=== PATIENT | female | born 1965 | race African-American/Black ===

== ENCOUNTER 2023-10-11 16:33 | Outpatient (AMB) | payer OTHER, SELFPAY ==
--- NOTE | 2023-10-11 16:50 | HO.NEPHOV ---
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 She has history of breast cancer which was treated. She has not taking any medications for the same. Her blood pressure has been close to goal. She does not have any other systemic symptoms. She has no edema, rise in serum creatinine, uncontrolled blood pressure or froth/foam in the urine. She denies any epistaxis, photosensitivity, skin rashes, urinary symptoms. She has no orthostasis. She does not take any excessive nonsteroidal anti-inflammatories. She claims to be compliant with her medications. She is currently on metformin which is keeping a blood sugar better controlled. Her proteinuria had been well controlled all along but not in the last urine test. [facility] Medical History (Updated 10/12/23 @ 21:30 by Aroldo Mendez MD) Hypertension Surgical History (Updated 10/11/23 @ 16:56 by Rachel Cardoso MA) History of removal of Port-a-Cath H/O mastectomy History of lumpectomy History of breast biopsy Family History Mother Heart disease Father Pancreatic cancer Sister Lymph node cancer Social History Alcohol intake: current Comment: Rare Patient Tobacco Use Status: Never used Tobacco Physical Exam Vital Signs: Last Vital Signs Pulse 93 10/11/23 16:51 BP 120/72 10/11/23 16:51 Pulse Ox 98 10/11/23 16:51 Oxygen Delivery Method Room Air 10/11/23 16:51 BMI result Body Mass Index 29.3 Const General: comfortable and no acute distress Orientation/consciousness: patient oriented x3 HEENT Head: Yes normocephalic Mouth: Normal oral and palatal mucosa present Eyes EOM: EOMs intact bilaterally Neck Neck: Yes supple Resp Auscultation: clear to auscultation bilaterally Cardio Jugular venous distension: no JVD Rate: regular rate GI Palpation (GI): Soft to palpation Auscultation: normal bowel sounds General: Yes no CVA tenderness Back/Spine/Pelvis Back: no CVA tenderness Skin General skin exam: no rashes or lesions noted Neuro General: patient oriented x3 and moves all extremities Extrem General: Yes no pedal edema Results Reviewed Nephrology Results: No Data to Display Assessment & Plan Assessment & Plan (1) Hypertension: Code(s): I10 - Essential (primary) hypertension Category: Medical Qualifiers: Hypertension type: primary hypertension Qualified Code(s): I10 - Essential (primary) hypertension (2) Proteinuria: Code(s): R80.9 - Proteinuria, unspecified Category: Medical Qualifiers: Proteinuria type: other Qualified Code(s): R80.8 - Other proteinuria Plan Breana has longstanding proteinuria which had been well controlled until recently. She has history of breast cancer which was treated with tamoxifen as well as letrozole which she has finished now. Blood pressure is well controlled. She has diabetes and is on metformin. Her renal functions have been stable. She denies any edema, froth or foam in the urine. In the past her serology and immunology were negative. Her anti CANDIE 2 R antibody was negative as well. I ordered repeat lab work. I will consider switching her amlodipine to diltiazem to utilize its anti proteinuric effect. She may need a renal biopsy. I asked her to stay away from nonsteroidal anti-inflammatories and maintain good hydration. I did not make any medication changes today. Further management is pending evolving data Orders: Orders Protein Creatinine Ratio, Ur 3 Months I10 - Essential (primary) hypertension, R80.9 - Proteinuria, unspecified Immunofixation, Random Urine 1 Month I10 - Essential (primary) hypertension, R80.9 - Proteinuria, unspecified Blood Urea Nitrogen 10/11/23 I10 - Essential (primary) hypertension, R80.9 - Proteinuria, unspecified Electrolytes 10/11/23 I10 - Essential (primary) hypertension, R80.9 - Proteinuria, unspecified Protein Creatinine Ratio, Ur 1 Month I10 - Essential (primary) hypertension, R80.9 - Proteinuria, unspecified Immunofixation Pnl, Serum 1 Month I10 - Essential (primary) hypertension, R80.9 - Proteinuria, unspecified Creatinine 10/11/23 I10 - Essential (primary) hypertension, R80.9 - Proteinuria, unspecified Calcium 10/11/23 I10 - Essential (primary) hypertension, R80.9 - Proteinuria, unspecified Coding Level of Care Code Est Pt Level 4 (54033) Diagnoses Primary hypertension I10 Hypertension type: primary hypertension Other proteinuria R80.8 Proteinuria type: other
[2023-10-11 16:51] VITALS: BP 120/72; PULSE 93; O2SAT 98; BMI 29.3
== END 2023-10-11 17:20 | disposition home or self-care (01) ==
PROVIDERS: PCP Hospitalist; Visit Provider Internal Medicine Nephrology
DX: I10 Essential (primary) hypertension (principal); R80.8 Other proteinuria
CPT/HCPCS: 99214

== ENCOUNTER → 2023-10-11 16:33 | Outpatient (BNVA) | payer OTHER, SELFPAY | PROVIDERS: PCP Hospitalist; Visit Provider Internal Medicine Nephrology ==

== ENCOUNTER 2024-01-10 16:15 | Outpatient (AMB) | payer OTHER, SELFPAY ==
--- NOTE | 2024-01-10 16:16 | HO.NEPHOV_ITS ---
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 She has history of breast cancer which was treated. She has not taking any medications for the same. Her blood pressure has been close to goal. She does not have any other systemic symptoms. She has no edema, rise in serum creatinine, uncontrolled blood pressure or froth/foam in the urine. She denies any epistaxis, photosensitivity, skin rashes, urinary symptoms. She has no orthostasis. She does not take any excessive nonsteroidal anti-inflammatories. She claims to be compliant with her medications. She is currently on metformin dose of which has been increased to 1000 mg bid. Her proteinuria had been well controlled all along but not in the last urine test. [facility] Medical History (Updated 10/12/23 @ 21:30 by Aroldo Mendez MD) Hypertension Surgical History History of removal of Port-a-Cath H/O mastectomy History of lumpectomy History of breast biopsy Family History Mother Heart disease Father Pancreatic cancer Sister Lymph node cancer Social History Alcohol intake: current Comment: Rare Patient Tobacco Use Status: Never used Tobacco Review of Systems Const All systems reviewed & are unremarkable except as noted in HPI and below Physical Exam Vital Signs: Last Vital Signs Pulse 85 01/10/24 16:17 BP 118/86 01/10/24 16:17 Pulse Ox 95 01/10/24 16:17 Oxygen Delivery Method Room Air 01/10/24 16:17 BMI result Body Mass Index 28.5 Const General: comfortable and no acute distress Orientation/consciousness: patient oriented x3 HEENT Head: Yes normocephalic Mouth: Normal oral and palatal mucosa present Eyes EOM: EOMs intact bilaterally Neck Neck: Yes supple Resp Auscultation: clear to auscultation bilaterally Cardio Jugular venous distension: no JVD Rate: regular rate GI Palpation (GI): Soft to palpation Auscultation: normal bowel sounds General: Yes no CVA tenderness Back/Spine/Pelvis Back: no CVA tenderness Skin General skin exam: no rashes or lesions noted Neuro General: patient oriented x3 and moves all extremities Extrem General: Yes no pedal edema Results Reviewed Nephrology Results: No Data to Display Assessment & Plan Assessment & Plan (1) Proteinuria: Code(s): R80.9 - Proteinuria, unspecified Category: Medical Qualifiers: Proteinuria type: other Qualified Code(s): R80.8 - Other proteinuria (2) Hypertension: Code(s): I10 - Essential (primary) hypertension Category: Medical Qualifiers: Hypertension type: primary hypertension Qualified Code(s): I10 - Essential (primary) hypertension Plan Breana has longstanding proteinuria which had been well controlled until recently. She has history of breast cancer which was treated with tamoxifen as well as letrozole which she has finished now. Blood pressure is well controlled. She has diabetes and is on metformin. Her renal functions have been stable. She denies any edema, froth or foam in the urine. In the past her serology and immunology were negative. Her anti CANDIE 2 R antibody was negative as well. I ordered repeat lab work. I will consider switching her amlodipine to diltiazem to utilize its anti proteinuric effect. She may need a renal biopsy. I asked her to stay away from nonsteroidal anti-inflammatories and maintain good hydration. I did not make any medication changes today. Further management is pending evolving data Orders: Orders Creatinine Today I10 - Essential (primary) hypertension, R80.8 - Other proteinuria Blood Urea Nitrogen Today I10 - Essential (primary) hypertension, R80.8 - Other proteinuria Electrolytes Today I10 - Essential (primary) hypertension, R80.8 - Other proteinuria Coding Level of Care Code Est Pt Level 4 (53230) Diagnoses Other proteinuria R80.8 Proteinuria type: other Primary hypertension I10 Hypertension type: primary hypertension
[2024-01-10 16:17] VITALS: BP 118/86; PULSE 85; O2SAT 95; BMI 28.5
== END 2024-01-10 16:29 | disposition home or self-care (01) ==
PROVIDERS: PCP Hospitalist; Visit Provider Internal Medicine Nephrology
DX: R80.8 Other proteinuria (principal); I10 Essential (primary) hypertension
CPT/HCPCS: 99214

== ENCOUNTER → 2024-01-10 16:15 | Outpatient (BNVA) | payer OTHER, SELFPAY | PROVIDERS: PCP Hospitalist; Visit Provider Internal Medicine Nephrology ==

== ENCOUNTER 2024-07-31 15:55 | Outpatient (AMB) | payer OTHER, SELFPAY ==
--- NOTE | 2024-07-31 16:01 | HO.NEPHOV_ITS ---
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 She has history of breast cancer which was treated. She has not taking any medications for the same. Her blood pressure has been close to goal. She does not have any other systemic symptoms. She has no edema, rise in serum creatinine, uncontrolled blood pressure or froth/foam in the urine. She denies any epistaxis, photosensitivity, skin rashes, urinary symptoms. She has no o rthostasis. She does not take any excessive nonsteroidal anti-inflammatories. She claims to be compliant with her medications. She is currently on metformin 1000 mg bid. [facility] Medical History (Updated 10/12/23 @ 21:30 by Aroldo Mendez MD) Hypertension Surgical History History of removal of Port-a-Cath H/O mastectomy History of lumpectomy History of breast biopsy Family History Mother Heart disease Father Pancreatic cancer Sister Lymph node cancer Social History Alcohol intake: current Comment: Rare Patient Tobacco Use Status: Never used Tobacco Review of Systems Const All systems reviewed & are unremarkable except as noted in HPI and below Physical Exam Const General: comfortable and no acute distress Orientation/consciousness: patient oriented x3 HEENT Head: Yes normocephalic Mouth: Normal oral and palatal mucosa present Eyes EOM: EOMs intact bilaterally Neck Neck: Yes supple Resp Auscultation: clear to auscultation bilaterally Cardio Jugular venous distension: no JVD Rate: regular rate GI Palpation (GI): Soft to palpation Auscultation: normal bowel sounds General: Yes no CVA tenderness Back/Spine/Pelvis Back: no CVA tenderness Skin General skin exam: no rashes or lesions noted Neuro General: patient oriented x3 and moves all extremities Extrem General: Yes no pedal edema Results Reviewed Nephrology Results: No Data to Display Assessment & Plan Assessment & Plan (1) Proteinuria: Code(s): R80.9 - Proteinuria, unspecified Category: Medical Qualifiers: Proteinuria type: other Qualified Code(s): R80.8 - Other proteinuria (2) Hypertension: Code(s): I10 - Essential (primary) hypertension Category: Medical Qualifiers: Hypertension type: primary hypertension Qualified Code(s): I10 - Essential (primary) hypertension Plan Breana has longstanding proteinuria . She has history of breast cancer which was treated with tamoxifen as well as letrozole which she has finished now. Her blood pressure is well controlled. She has diabetes and is on metformin. Her renal functions have been stable. She denies any edema, froth or foam in the urine. In the past her serology and immunology were negative. Her anti CANDIE 2 R antibody was negative as well. I switched her amlodipine to diltiazem to utilize its anti proteinuric effect. F/U labs ordered. She may need to start Jardiance as well as a renal biopsy. I asked her to stay away from nonsteroidal anti-inflammatories and maintain good hydration. Further management is pending evolving data Orders: Orders Protein Creatinine Ratio, Ur 3 Months I10 - Essential (primary) hypertension, R80.8 - Other proteinuria Medications: New diltiazem HCl CD 120 mg PO DAILY 30 caps 6RF Coding Level of Care Code Est Pt Level 4 (65352) Diagnoses Other proteinuria R80.8 Proteinuria type: other Primary hypertension I10 Hypertension type: primary hypertension
[2024-07-31 16:02] VITALS: BP 132/88; PULSE 103; O2SAT 98; BMI 30.3
--- OUTSIDE RECORDS SUMMARY | 2024-07-31 16:35 | XMS_ITS | Data Portability ---
Author Organization [facility], [address] Address [address] [place] [address] Care Team Providers Care Paper Handler Name Role Phone ELLA FUENTES Primary Care Provider Assessment No assessment recorded. Plan of Treatment Reminders Order Date Submit Date Provider Last Modified By Organization Details Last Modified Time Details Appointments None recorded. Lab SARS CoV 2 RNA (COVID-19), QL, director search marketing strategies-PCR, respiratory specimen 2022 0[facility] [place] [facility] [address] [place] [address], [address], 3 14:07:12 Referral None recorded. Procedures None recorded. Surgeries None recorded. Imaging None recorded. Medication Orders None recorded. Patient TargetsNo targets recorded. Patient InstructionsNo instructions recorded. Reason for Referral None Reported. Results Created Date Observation Date Name Description Value Unit Range Abnormal Flag Note LastModifiedBy Organization Detail LastModifiedTime 01/26/20 23 01/26/2023 SARS- COV-2 , KRYSTIAN sars-cov-2, KRYSTIAN NOT DETECT ED not detect ed This nucle ic acid ampli ficat ion test was devel oped and its perfo rmanc e juanjo cteri stics deter mined by [facility]. Nucle ic acid ampli ficat ion tests inclu de RT-PC R and TMA. This test has not been FDA clear ed or appro ben. This test has been autho rized by FDA under an Emerg ency Use Autho rizat ion (EUA) . This test is only autho rized for the durat ion of time the decla ratio n that circu mstan carmel exist justi fying the autho irina townsend of the emerg ency use of in vitro diagn ostic tests for detec tion of SARS- CoV-2 virus and/o r diagn osis of COVID -19 infec tion under secti on 564(b )(1) of the Act, 21 U.S.C . 360bb b-3(b ) (1), unles s the autho irina townsend is termi nated or revok ed soone r. When diagn ostic testi ng is negat davis, the possi bilit y of a false negat davis resul t shoul d be consi dered in the kayla xt of a patie nt's recen t expos ures and the prese nce of clini irene signs and sympt oms consi stent with COVID -19. An indiv idual witho ut sympt oms of COVID -19 and who is not alli ing SARS- CoV-2 virus would expec t to have a negat davis (not detec renee) resul t in this assay . Not Available [facility] ([facility]) [address] [facility], [place], [address], 01/26/2023 14:07:12 Result Notes None recorded. Problems Name Problem SNOMED Code Status Onset Date Resolution Date Notes Provider Name and Address Organization Details Recorded Time Malignant tumor of breast 035747056 Completed 202201/25/2023 CLAUS DRINKWINE null, PA - [facility] 3 18:00:35 Diabetes mellitus 71915857 Active 2022 CLAUS DRINKWINE null, PA - [facility] 3 18:00:43 Hypertensiv e disorder 86217048 Active 2022 CLAUS DRINKWINE null, PA - [facility] 3 18:00:56 Hyperlipide madelyn 88864342 Active 2022 CLAUS DRINKWINE null, PA - [facility] 3 18:01:11 Problem Notes None recorded. Procedures Surgical History Date Name Laterality Status Provider Name and Address Organization Details Recorded Time excision of breast completed CLAUS DRINKWINE PA - [facility] 01/25/2023 18:01:34 Imaging Results None recorded. Procedure Notes None recorded. Medical Equipment None Reported. Allergies Allergen ID Allergen Name Allergen Category Reaction Reaction Severity Criticality Documentation Date Start Date Code Code System Note Provider Name and Address Organization Details Recorded Time 422288 mold extract environme nt Not available Not available Not available 01/25/2023 17919 8 RxNorm CLAUS latif PA - [facility] 3 17:58:53 No known drug allergies Medications Name Sig Start Date Stop Date Status Note LastModified by Organization Details LastModified Time metformin 500 mg tablet TAKE 1 TABLET BY MOUTH TWICE A DAY WITH A MEAL FOR 30 DAYS active Not Available Not Available No t Available Iron (ferrous sulfate) 325 mg (65 mg iron) tablet Take 1 tablet every day by oral route. active Not Available Not Available No t Available amlodipine 5 mg tablet TAKE 1 TABLET BY MOUTH EVERY DAY active Not Available Not Available No t Available valsartan 320 mg tablet TAKE 1 TABLET BY MOUTH 1 TIME EACH DAY. active Not Available Not Available No t Available rosuvastati n 5 mg tablet TAKE 1 TABLET BY MOUTH EVERY DAY IN THE EVENING active Not Available Not Available No t Available Nasal Saline active Not Available Not Available Not Available Calcium with Vitamin D active Not Available Not Available No t Available aspirin 81 mg capsule Take 1 capsule every day by oral route. active Not Available Not Available No t Available Flowflex COVID-19 Antigen Home Test kit USE DIRECTED 01/25 completed Not Available Not Available Not Available Vitals Date Recorded Body height Body mass index (BMI) Body weight Pain severity - 0-10 verbal numeric rating [Score] - Reported Body temperature Respiratory rate Heart rate Oxygen saturation Oxygen saturation in Arterial blood by Pulse oximetry Systolic blood pressure Diastolic blood pressure Provider Name and Address Organization Details Last Updated DateTime 3 165.1 cm 29.6 kg/m2 76284.4 4 g 0 97.5 [degF] 16 /min 84 /min 98 % 98 % 122 mm[Hg] 78 mm[Hg] CLAUS SONGJUANITA PA - [facility] 3 18:05:50 Social History Question Answer Notes LastModified by Organizat ion Details LastModified Time Tobacco Smoking Status Never Smoker CLAUS DRINKWINE null, PA - [facility] 01/25/2023 18:02:46 Do You Use Any Illicit Or Recreational Drugs? No Information not available 01/25/2023 Have You Recently Traveled Abroad? No Information not available 01/25/2023 Do You Or Have You Ever Used Any Other Forms Of Tobacco Or Nicotine? No Information not available 01/25/2023 Sex: Unknown Functional Status None recorded. Mental Status None recorded. Family History Relationship Description Onset Age of this Age Resolved Age Notes LastModified by Organization Details LastModified Time Sister Malignant neoplastic disease [email or web address] Not available 01/25 18:02:08 Sister Diabetes mellitus [email or web address] Not available 01/25 18:02:28 Father Malignant neoplastic disease [email or web address] Not available 01/25 18:02:15 Medical History No medical history recorded. Gynecological HistoryNo gynecological history recorded. Obstetrics History GPAL:G 0 P 0 0 0 0 Immunizations Vaccine Type Date Status Note Provider Nam e and Address Organization Details Recorded Time Influenza, MDCK, quadrivalent, PF 05/03/2018 completed CLAUS DRINKWINE null, PA - [facility] 01/25/2023 18:00:03 Influenza, MDCK, quadrivalent, PF 05/09/2022 completed CLAUS DRINKWINE null, PA - [facility] 01/25/2023 18:00:03 zoster recombinant 07/11/2022 completed CLAUS DRINKWINE null, PA - [facility] 01/25/2023 18:00:03 zoster recombinant 11/25/2021 completed CLAUS DRINKWINE null, PA - [facility] 01/25/2023 18:00:03 COVID-19, mRNA, LNP-S, PF, 30 mcg/0.3 mL dose 09/01/2020 completed CLAUS DRINKWINE null, PA - [facility] 01/25/2023 18:00:03 COVID-19, mRNA, LNP-S, PF, 30 mcg/0.3 mL dose 09/21/2020 completed CLAUS DRINKWINE null, PA - [facility] 01/25/2023 18:00:03 COVID-19, mRNA, LNP-S, PF, 30 mcg/0.3 mL dose 04/10/2021 completed CLAUS DRINKWINE null, PA - [facility] 01/25/2023 18:00:03 COVID-19, mRNA, LNP-S, PF, 30 mcg/0.3 mL dose, kirby-sucrose 10/11/2021 completed CLAUS DRINKWINE null, PA - [facility] 01/25/2023 18:00:03 COVID-19, mRNA, LNP-S, bivalent, PF, 30 mcg/0.3 mL dose 07/11/2022 completed CLAUS DRINKWINE null, PA - [facility] 01/25/2023 18:00:03 Influenza, split virus, quadrivalent, PF 04/24/2021 completed CLAUS DRINKWINE null, PA - [facility] 01/25/2023 18:00:03 Influenza, split virus, quadrivalent, PF 06/01/2016 completed CLAUS DRINKWINE null, PA - [facility] 01/25/2023 18:00:03 Past Encounters Encounter ID Performer Location Encounter Start Date Encounter Closed Date Diagnosis/Indication Diagnosis SNOMED-CT Code Diagnosis ICD10 Code Diagnosis Note [id number] [facility] [address] [place] [address] 10/26/2021 14:57:24 10/26/2021 18:00:09 [id number] Zeina Chavez MD [id number] [facility] [address] [place] [address] 01/25/2023 17:32:21 01/25/2023 18:42:37 Exposure to viral disease 0783808701 21732 Z20.828 Labs pendingYou should follow-up with [facility] or your PCP in 2-3 days, or at any time if your condition does not improve or worsens. Any acute change should prompt a visit to the nearest Emergency Department . Health Concerns Section Related Observation LastModified by Organization Detai ls LastModified Time None Recorded Concern Status LastModified by Organization Details LastModified Time None Recorded Advance Directives Directive None Recorded Payers Encounter Date Sequence Insurance Name Policy Number Policy Hu Covered Member ID Hu Member ID Guarantor Name 10/26/2021 1 [facility] [employer] - TOGETHER (MEDICAID HMO) [id number] Breana Faria [id number] Breana Faria 01/25/2023 1 [facility] [id number] 1 Breana Faria [id number] Breana Faria Notes Date Note Type Note Provider Name and Address Organization Details Recorded Time 01/25/2023 text/html COVID-19 SymptomsReported bypatient.Severity:no pain Associated Symptoms:no sputum production; no wheezing; no runny nose; no nausea; no vomiting; no diarrhea; no ear pain or pressure; no lymphadenopathy; no fever/chills; no headache; no body aches; no change in mental status; no hypotension; no tachycardia Pt requesting PCR covid testing, +exposure 5 days prior. Asymptomatic. Denies sob or fever. Zeina Chavez MD [address] [facility] [place], [address], [place] - [facility] 01/25/2023 18:46:41 OBGyn Episode No OBEpisode recorded.
--- OUTSIDE RECORDS SUMMARY | 2024-07-31 16:35 | XMS_ITS | Clinical Summary ---
Author Organization [facility] Address [address] [place] [address] Care Team Providers Care Merchandise Supervisor Name Role Phone Howie Walton MD Primary Care Provider Allergies No known active allergies Medications Medication Sig Dispensed Refills Start Date End Date Status aspirin EC 81 MG tablet Take 1 tablet (81 mg total) by mouth daily. 0 Active Calcium Carb-Cholecalciferol (CALCIUM 600 + D PO) Take by mouth. 0 Active LOSARTAN POTASSIUM PO Take 320 mg by mouth daily. 0 Active sodium chloride (OCEAN) 0.65 % nasal spray spray or apply 1 spray inside Nose as needed for congestion. 0 Active Multiple Vitamins-Minerals (HAIR SKIN NAILS PO) Take by mouth. 0 Active ferrous sulfate 325 (65 FE) MG tablet Take 1 tablet (325 mg total) by mouth daily. 0 Active valsartan (DIOVAN) tablet 320 mg Take 1 tablet (320 mg total) by mouth daily. 0 Active amLODIPine (NORVASC) tablet 5 mg Take 1 tablet (5 mg total) by mouth daily. 0 Active letrozole (FEMARA) 2.5 MG tablet TAKE 1 TABLET BY MOUTH EVERY DAY 90 tablet 3 10/16/2020 Active metFORMIN (GLUCOPHAGE) tablet 500 mg Take 1 tablet (500 mg total) by mouth 2 (two) times a day with meals. 0 Active rosuvastatin (CRESTOR) tablet 5 mg Take 1 tablet (5 mg total) by mouth daily. 0 Active Active Problems Problem Noted Date Diagnosed Date Body mass index (BMI) of 25.0 to 29.9 06/08/2019 Obesity with body mass index 30 or greater 06/08 Essential hypertension 06/08/2019 Impaired fasting glucose 06/08/2019 Occlusion and stenosis of bilateral carotid raphael carrie 06/08/2019 Personal history of malignant neoplasm of breast 06/08/2019 Malignant neoplasm of right female breast 2016 Social History Tobacco Use Types Packs/Day Years Used Date Smoking Tobacco: Never Smokeless Tobacco: Never Alcohol Use Standard Drinks/Week Comments No 0 (1 standard drink = 0.6 oz pur e alcohol) Sex and Gender Information Value Date Recorded Sex Assigned at Not on file Gender Identity Not on file Sexual Orientation Not on file Job Start Date Occupation Industry Not on file Not on file Not on file Last Filed Vital Signs Vital Sign Reading Time Taken Comments Blood Pressure 121/79 07/01/2023 2:53 PM EST Pulse 94 07/01/2023 2:53 PM EST Temperature 36.6 ??C (97.9 ??F) 07/01/2023 2:53 PM ES T Respiratory Rate - - Oxygen Saturation 100% 07/01/2023 2:53 PM EST Inhaled Oxygen Concentration - - Weight 81.5 kg (179 lb 9.6 oz) 07/01/2023 2:53 P M EST Height 165.1 cm (5' 5 ) 07/01/2023 2:53 PM EST Body Mass Index 29.89 07/01/2023 2:53 PM EST Plan of Treatment Health Maintenance Due Date Last Done Comments Hepatitis B Vaccines (1 of 3 - 3-dose series) 1966 Hepatitis C Screening 1966 Pneumococcal Vaccine (1 of 2 - PCV) 02/02/1972 Depression Screening 1978 BMI Counseling 02/02/1984 Preventative Health Evaluation 02/02/1984 DTap / Tdap / Td (1 - Tdap) 1985 Cervical Cancer Screening (Pap Smear) 1987 Colon Cancer Screening (Colonoscopy) 2011 Breast Cancer Screening (Mammogram) 02/02/2016 COVID-19 Vaccine ( season) 2024 07/11/2022, 10/11/2021, 04/10/2021, Additional history exists Influenza Vaccine (#1) 2024 2, 04/24/2021, 05/03/2018, Additional history exists Shingrix-Zoster Vaccine Completed 07/11/2022, 11/25 RSV Ped < 20 months Aged Out No longe r eligible based on patient's age to complete this topic Care Teams Merchandise Supervisor Relationship Specialty Start Date End Date Howie Walton MD PCP - General Internal Medicine 12/10/16
--- OUTSIDE RECORDS SUMMARY | 2024-07-31 16:35 | XMS_ITS ---
Author Organization [facility] Address [address] [facility] [address] [place] [address] Care Team Providers Care Cdl Program Coordinator Name Role Phone ELLA FUENTES Primary Care Provider [phone] REASON FOR VISIT Pt needs to R/S appt Encounters Encounter Location Date Provider Diagnosis [facility] [address] [facility] [address] [place] [address] 07/16/2024 ELLA FUENTES Plan Of Treatment Next Appt Details Provider Name:Armida dean, 08/01/2024 03:30:00 PM, [address] [facility] [address], [place], [address], Progress Notes * Sol WEINSTEINOB:[birth year] (59 yo F)Acc No.[id number]:07/16/2024 Patient:?Breana WEINSTEIN :1965???Age:59 Y???Sex:Female Address:[facility] [address], [address] [place], [place] * true * Date:? Generated for Printi eleazar/Jia/eTransmitting on:?07/31/2024 04:35 PM EST
--- OUTSIDE RECORDS SUMMARY | 2024-07-31 16:36 | XMS_ITS | Clinical Summary ---
Author Organization [facility] Address [address] [place] [address] Phone Care Team Providers Care Wood Fence Erector Name Role Phone Howie Walton MD Primary Care Provider [phone] Allergies No known active allergies Medications aspirin (ST AMADOR) 81 MG EC tablet Take 1 tablet by mouth 1 (one) time each day Active calcium carbonate-vitam in D 600-400 MG-UNIT per tablet Take 1 tablet by mouth 1 (one) time each day Active ferrous sulfate 325 (65 Fe) MG tablet Take 1 tablet by mouth 1 (one) time each day Active amLODIPine (NORVASC) 5 MG tablet Take 1 tablet by mouth 1 (one) time each day Active NASAL SALINE NA Administer into affected nostril(s) Active valsartan (DIOVAN) 320 MG tablet TAKE 1 TABLET BY MOUTH 1 TIME EACH DAY. 90 tablet 3 3 Active metFORMIN (GLUCOPHAGE) 500 MG tablet Take 1 tablet by mouth in the morning and 1 tablet in the evening. 3 Active Active Problems Problem Noted Date Diagnosed Date Subclavian artery stenosis 09/08/2021 Body mass index 40+ - severely obese 09/08/2021 Proteinuria 09/07/2020 Essential hypertension 06/08/2019 Immunizations Name Administration Dates Next Due Influenza (IM) Preservative Free 02/28/2019 Family History Medical History Relation Comments Cancer Father Pancreatic Cance r Heart disease Mother Hypertension Mother Relation Status Comments Father Mother Social History Tobacco Use Types Packs/Day Years Used Date Smoking Tobacco: Never Smokeless Tobacco: Never Tobacco Cessation:Counseling Given: Not Answered Alcohol Use Standard Drinks/Week Comments No 0 (1 standard drink = 0.6 oz pur e alcohol) Comments Unknown Sex and Gender Information Value Date Recorded Sex Assigned at Not on file Legal Sex Female 4:43 PM EST Gender Identity Not on file Sexual Orientation Not on file Last Filed Vital Signs Vital Sign Reading Time Taken Comments Blood Pressure 102/80 12/07/2022 4:57 PM EDT Pulse 78 12/07/2022 4:57 PM EDT Temperature - - Respiratory Rate - - Oxygen Saturation 98% 03/09/2022 4:49 PM EDT Inhaled Oxygen Concentration - - Weight 80.6 kg (177 lb 9.6 oz) 12/07/2022 4:57 P M EDT Height 165.1 cm (5' 5 ) 09/10/2019 12:00 PM EDT Body Mass Index 29.55 09/10/2019 12:00 PM EDT Plan of Treatment Health Maintenance Due Date Last Done Comments Breast Cancer Screening 1966 Pneumococcal Vaccine: Pediat rics (0 to 5 Years) and At-Risk Patients (6 to 64 Years) (1 of 2 - PCV) 02/02/1972 Hepatitis B Vaccine (1 of 3 - 19+ 3-dose series) 1985 Colorectal Cancer Screening: Annual FOBT 2015 Colorectal Cancer Screening: Colonoscopy 2015 Colorectal Cancer Screening: Sigmoidoscopy 2015 Diabetes: Hemoglobin A1C 12/07/2022 Diabetes: Ophthalmology Exam 12/07/2022 Diabetes: Pedal Pulse Checked 12/07/2022 Diabetes: Sensory Foot Exam 12/07/2022 Diabetes: Visual Foot Exam 12/07/2022 Influenza Vaccine (#1) 2024 2, 04/24/2021, 02/28/2019, Additional history exists Insurance [facility] Care Teams Wood Fence Erector Relationship Specialty Start Date End Date Howie Walton MD [address] [place] [phone] PCP - General 06/23/20
--- OUTSIDE RECORDS SUMMARY | 2024-07-31 16:36 | XMS_ITS | Encounter Summary ---
Author Organization [facility] Address [address] [place] [address] Care Team Providers Care Math And Physics Instructor Name Role Phone Howie Walton MD Primary Care Provider [phone] Encounter Details Date Type Department Care Team (Late st Contact Info) Description 07/10/2024 Telephone Gastroenterology - [place] [address] [place] [address] Carlie Jennings MA Social History Tobacco Use Types Packs/Day Years Used Date Smoking Tobacco: Never Smokeless Tobacco: Never Alcohol Use Standard Drinks/Week Comments Not Currently 0 (1 standard drink = 0.6 oz pur e alcohol) Comments Unknown Sex and Gender Information Value Date Recorded Sex Assigned at Not on file Legal Sex Female 6:07 AM EST Gender Identity Not on file Sexual Orientation Not on file documented as of this encounter Progress Notes * Carlie Jennings MA - 07/10/2024 12:16 PM EST Scheduled. * Carlie Jennings MA - 07/10/2024 8:26 AM EST ----- Message from Sparkle Mchugh MD sent at 07/07/2024 6:16 PM EST ----- Please schedule the patient for colonoscopy, diagnosis history of colon polyps ----- Message ----- From: Kalani Massey DO Sent: 07/06/2024 6:55 AM EST To: Leila Mchugh MD documented in this encounter Plan of Treatment Upcoming Encounters Date Type Department Care Team (Late st Contact Info) Description 11/21/2024 12:[address] [facility] Endoscopy [address] [place] [phone] Leila Mchugh MD 175 [facility] [address] [place] [address] 04/16/2025 3:45 PM EST Office Visit General Surgery - [place] [address] [phone] Acacia Manning MD [address] [address] 07/04/2025 2:45 PM EST Office Visit [facility] Hematology Oncology [address] [place] [phone] Kalani Massey, DO [address] [place] [address] documented as of this encounter Visit Diagnoses Not on filedocumented in this encounter Care Teams Math And Physics Instructor Relationship Specialty Start Date End Date Howie Walton MD [address] [place] [phone] PCP - General 03/31/17 documented as of this encounter
--- OUTSIDE RECORDS SUMMARY | 2024-07-31 16:36 | XMS_ITS | Encounter Summary ---
Author Organization [facility] Address [address] [place] [address] Care Team Providers Care Bike Designer Name Role Phone Howie Walton MD Primary Care Provider [phone] Reason for Visit * Reason Comments Follow-up Encounter Details Date Type Department Care Team (Late st Contact Info) Description 07/05/2024 2:45 PM EST Office Visit [facility] Hematology Oncology [address] [place] [phone] Kalani Massey, DO [address] [place] [address] Malignant neoplasm of right breast in female, estrogen receptor positive, unspecified site of breast (CMS/HCC) (Primary Dx) Social History Tobacco Use Types Packs/Day Years Used Date Smoking Tobacco: Never Smokeless Tobacco: Never Tobacco Cessation:Counseling Given: Not Answered Alcohol Use Standard Drinks/Week Comments Not Currently 0 (1 standard drink = 0.6 oz pur e alcohol) Comments Unknown Sex and Gender Information Value Date Recorded Sex Assigned at Not on file Legal Sex Female 6:07 AM EST Gender Identity Not on file Sexual Orientation Not on file documented as of this encounter Last Filed Vital Signs Vital Sign Reading Time Taken Comments Blood Pressure 112/71 07/05/2024 2:58 PM EST Pulse 90 07/05/2024 2:58 PM EST Temperature 36.1 ??C (97 ??F) 07/05/2024 2:58 PM EST Respiratory Rate - - Oxygen Saturation 100% 07/05/2024 2:58 PM EST Inhaled Oxygen Concentration - - Weight 79.2 kg (174 lb 8 oz) 07/05/2024 2:58 PM EST Height 165.1 cm (5' 5 ) 07/05/2024 2:58 PM EST Body Mass Index 29.04 07/05/2024 2:58 PM EST documented in this encounter Progress Notes * Kalani Massey, DO - 07/05/2024 2:45 PM EST Images from the original note were not included. Hematology/Oncology Progress Note 07/01/23 Subjective Patient identifier: 58 yo F with history of right breast cancer ER/AL positive 2010. Interim history: Breana presents today for follow up. She feels good overall. Reports bowels and bladder at baseline. She reports she is due for colonoscopy. Constitutional: No fevers, weight loss, night sweats, fatigue Resp/CV: No cough, shortness of breath, chest pain GI: No nausea, vomiting, diarrhea, abdominal pain, bloody stool Skin: No rashes Neuro: No headaches, dizziness, neuropathy Musculoskeletal: No bone pain, no joint pain. Hem/Lymph : No palpable lymph nodes, no bleeding Oncology history: diagnosed in early 2010. She underwent mastectomy with findings of infiltrating lobular carcinoma stage IIB, T3 N0(i+) ER positive, AL positive, HER-2 negative, plus LCIS. There were isolated tumor cells seen in lymph node. BRCA 1 and 2 testing was negative for deleterious mutations postoperative radiation therapy was given to the chest wall following 4 cycles of adjuvant chemotherapy with docetaxel plus cyclophosphamide. Subsequently patient started endocrine therapy tamoxifen from 2010 until November 2018 then after confirmation of menopause switched to letrozole. Tolerated letrozole without difficulty doing well at this time no ongoing acute complaints. Ended after ten years Has been monitored off of therapy. Objective Vitals: 07/05/24 1458 BP: 112/71 Pulse: 90 Temp: 36.1 ??C (97 ??F) SpO2: 100% ECO General: well nourished woman , seated comfortably. HENT: pupils equal b/l Lymph: No palpable cervical, supraclavicular or axillary adenopathy. Breast: status post right mastectomy with no palpable masses or irregularities. Left breast with nomasses or lesions. Resp: normal inspiratory effort. Cardio: regular rate and rhythm Abdomen: soft non tender, non distended Neuro: A and O x 3, normal speech. Medications Current Outpatient Medications: amLODIPine (NORVASC) 5 mg tablet, Take 1 tablet (5 mg total) by mouth daily., Disp: , Rfl: aspirin 81 mg EC tablet, Take 81 mg by mouth daily., Disp: , Rfl: calcium carbonate-vitamin D3 600 mg-5 mcg (200 unit) per tablet, Take by mouth., Disp: , Rfl: calcium carbonate/vitamin D3 (CALCIUM 600 + D,3, ORAL), Take by mouth. - Oral, Disp: , Rfl: ferrous sulfate 325 mg (65 mg elemental iron) tablet, Take 1 tablet (325 mg total) by mouth daily.,Disp: , Rfl: metFORMIN (GLUCOPHAGE) 1,000 mg tablet, Take 1 tablet (1,000 mg total) by mouth 2 (two) times a daywith meals., Disp: , Rfl: rosuvastatin (CRESTOR) 5 mg tablet, Take 1 tablet (5 mg total) by mouth daily., Disp: , Rfl: sodium chloride (AYR) 0.65 % nasal drops, spray or apply 1 spray inside Nose as needed for congestion., Disp: , Rfl: sodium chloride (SALINE NASAL NASL), by Nasal route., Disp: , Rfl: Vagifem 10 mcg tablet vaginal tablet, Insert 1 tablet (10 mcg total) into the vagina 2 (two) times a week., Disp: , Rfl: valsartan (DIOVAN) 320 mg tablet, Take 1 tablet (320 mg total) by mouth daily., Disp: , Rfl: Allergies No Known Allergies Past medical history, past surgical history, and family history reviewed. Medical history Past Medical History: Diagnosis Date Hypertension Malignant neoplasm of right breast (HCC) Surgical history Past Surgical History: Procedure Laterality Date BREAST LUMPECTOMY MASTECTOMY PORTACATH PLACEMENT Family history Family history unknown: Yes Imaging Studies Imaging studies reviewed. Assessment & Plan 58 year old female with history of right breast cancer in 2010, status post mastectomy, adjuvant chemotherapy TC. She has completed ten years of adjuvant hormonal therapy as well. Breana remains JAILENE from her breast cancer now 14 years out. Stage IIB right breast carcinoma ER positive, AL positive, HER-2 negative continue on active surveillance Ordered annual screening mammogram unilateral for Jun 2025 She prefers to continue to follow up here, RTC in one year Follow up with PCP regards to DXA scan, and other age appropriate cancer screenings, she is overduefor her colonoscopy I gave her the phone number to call the GI office to schedue it. Sign Brooklyn Massey DO - Hematology/Oncology [facility] documented in this encounter Plan of Treatment Upcoming Encounters Date Type Department Care Team (Late st Contact Info) Description 11/21/2024 12:[address] [facility] Endoscopy [address] [place] [phone] Leila Mchugh MD 175 [facility] [address] [place] [address] 04/16/2025 3:45 PM EST Office Visit General Surgery - [place] [address] [phone] Acacia Manning MD 175 [facility] [address] [place] [address] 07/04/2025 2:45 PM EST Office Visit [facility] Hematology Oncology [address] [place] [phone] Kalani Massey DO [address] [place] [address] documented as of this encounter Visit Diagnoses Diagnosis Malignant neoplasm of right breast in female, estrogen receptor positive, unspecified site of breast (CMS/HCC)- Primary documented in this encounter Discontinued Medications Medication Sig Discontinue Reason Start Date End Da te letrozole (FEMARA) 2.5 mg tablet TAKE 1 TABLET BY MOUTH EVERY DAY 10/16/2020 07/06/2024 losartan (COZAAR) 50 mg tablet Take 50 mg by mouth daily. 07/06/2024 LOSARTAN POTASSIUM, BULK, MISC Take 320 mg by mouth daily. 07/06/2024 metFORMIN (GLUCOPHAGE) 500 mg tablet Take 1 tablet (500 mg total) by mouth 2 (two) times a day with meals. 07/06/2024 multivitamin with minerals tablet Take by mouth. 07/06/2024 tamoxifen (NOLVADEX) 20 mg chemo tablet 07/06/2024 documented as of this encounter Historical Medications * This list may reflect changes made after this encounter. metFORMIN (GLUCOPHAGE) 1,000 mg tablet Take 1 tablet (1,000 mg total) by mouth 2 (two) times a day with meals. Vagifem 10 mcg tablet vaginal tablet Insert 1 tablet (10 mcg total) into the vagina 2 (two) times a week. 2024 added in this encounter Care Teams Bike Designer Relationship Specialty Start Date End Date Howie Walton MD [address] [place] [phone] PCP - General 03/31/17 documented as of this encounter
--- OUTSIDE RECORDS SUMMARY | 2024-07-31 16:36 | XMS_ITS ---
Author Organization [facility] Address [address] [facility] [address] [place] [address] Care Team Providers Care Body Wirer Name Role Phone ELLA FUENTES Primary Care Provider Armida Peterson [phone] REASON FOR VISIT WM f/up Encounters Encounter Location Date Provider Diagnosis [facility] [address] [facility] [address] [place] [address] 07/25/2024 Armida Peterson Plan Of Treatment Next Appt Details Provider Name:Armida dean, 08/01/2024 03:30:00 PM, [address] [facility] [address], [place], [address], Progress Notes * Sol WEINSTEINOB:[birth year] (59 yo F)Acc No.[id number]:07/25/2024 Patient:?Breana WEINSTEIN Provider:?Armida Peterson :1965???Age:59 Y???Sex:Female D ate:07/25/2024 Address:[facility] [address] [place], [place] Pcp:ELLA FUENTES Subjective: * Chief Complaints: * ???1. WM f/up. * Medical History:? Objective: * Vitals:? Assessment: Plan: * Treatment: * Procedure Codes:?NOSHO NO SH OW FEE * * Electronic signature of Claudia Peterson PA-C on 07/31/2024 at 04:36 PM EST Sign off status: Pending * Provider:Keyanna Peterson Date:?[birth year] 25 Generated for Juan Miguel bush/Jia/Barry on:?07/31/2024 04:36 PM EST
--- OUTSIDE RECORDS SUMMARY | 2024-07-31 16:36 | XMS_ITS | Encounter Summary ---
Author Organization [facility] Address [address] [facility] [address] [place] [address] Phone Care Team Providers Care Flower Shop Laborer/Designer Name Role Phone Howie Walton MD Primary Care Provider Reason for Visit * Reason Comments Med Refill Encounter Details Date Type Department Care Team ([facility] st Contact Info) Description 10/21/2023 Refill [facility] [address] [facility] [address] [place] [phone] Curtis Suarez MD [address] [facility] [address] [place] [phone] Social History Tobacco Use Types Packs/Day Years [...] on file documented as of this encounter Plan of Treatment Not on file documented as of this encounter Visit Diagnoses Not on filedocumented in this encounter Care Teams Flower Shop Laborer/Designer Relationship Specialty Start Date End Date Howie Walton MD [address] [place] [phone] PCP - General 06/23/20 documented as of this encounter
--- OUTSIDE RECORDS SUMMARY | 2024-07-31 16:36 | XMS_ITS | Clinical Summary ---
Author Organization [facility] Address [address] [place] [address] Phone Care Team Providers Care Cigar Bander Hand Name Role Phone Howie Walton MD Primary Care Provider Allergies No known active allergies Medications amLODIPine (NORVASC) 5 mg tablet Take 1 tablet (5 mg total) by mouth daily. Active calcium carbonate-vitam in D3 600 mg-5 mcg (200 unit) per tablet Take?by mouth. Active ferrous sulfate 325 mg (65 mg elemental iron) tablet Take 1 tablet (325 mg total) by mouth daily. Active rosuvastatin (CRESTOR) 5 mg tablet Take 1 tablet (5 mg total) by mouth daily. Active sodium chloride (AYR) 0.65 % nasal drops spray or apply 1 spray inside Nose as needed for congestion . Active valsartan (DIOVAN) 320 mg tablet Take 1 tablet (320 mg total) by mouth daily. Active aspirin 81 mg EC tablet Take 81 mg by mouth daily. Active calcium carbonate/vitam in D3 (CALCIUM 600 + D,3, ORAL) Take by mouth. - Oral Active sodium chloride (SALINE NASAL NASL) by Nasal route. Active Vagifem 10 mcg tablet vaginal tablet Insert 1 tablet (10 mcg total) into the vagina 2 (two) times a week. 4 Active metFORMIN (GLUCOPHAGE) 1,000 mg tablet Take 1 tablet (1,000 mg total) by mouth 2 (two) times a day with meals. Active letrozole (FEMARA) 2.5 mg tablet TAKE 1 TABLET BY MOUTH EVERY DAY 07/06/19 Discontinued metFORMIN (GLUCOPHAGE) 500 mg tablet Take 1 tablet (500 mg total) by mouth 2 (two) times a day with meals. 07/06/19 Discontinued LOSARTAN POTASSIUM, BULK, MISC Take 320 mg by mouth daily. 07/06/19 Discontinued multivitamin with minerals tablet Take by mouth. 07/06/19 Discontinued losartan (COZAAR) 50 mg tablet Take 50 mg by mouth daily. 07/06/19 Discontinued tamoxifen (NOLVADEX) 20 mg chemo tablet 07/06/19 Discontinued Active Problems Problem Noted Date Diagnosed Date Essential hypertension 06/08/2019 Impaired fasting glucose 06/08/2019 Obesity with body mass index 30 or greater 06/08 Occlusion and stenosis of bilateral carotid raphael carrie 06/08/2019 Malignant neoplasm of right female breast 2016 Encounters Date Type Department Care Team Description 07/10/2024 Telephone Gastroenterology - [place] [facility] [address] [facility] [address] [place] [address] Carlie Jennings MA 07/05/2024 2:45 PM EST Office Visit [facility] Hematology Oncology [address] [place] [address] Kalani Massey DO Malignant neoplasm of right breast in female, estrogen receptor positive, unspecified site of breast (CMS/HCC) (Primary Dx) from Last 3 Months Immunizations Name Administration Dates Next Due Oculus360 (ages 12 & older) KLEVER S-CoV-2 COVID-19, mRNA, LNP-S, kirby-sucrose, preservative free 10/11/2021 Pfizer SARS-CoV-2 COVID-19, mRNA, LNP-S, preservative free 07/11/2022,04/10/2021,09/21/2020,2020 Surgical History Surgery Date Site/Laterality Comments BREAST LUMPECTOMY PROCEDURE:BREAST LUMPECTOMY MASTECTOMY PROCEDURE:MASTECTOMY PORTACATH PLACEMENT PROCEDURE:PORTACATH PLACEMENT Medical History Medical History Date Comments Malignant neoplasm of right breast (CMS/HCC) DX:Malignant neoplasm of rig ht breast (HCC) Hypertension DX:Hypertension Social History Tobacco Use Types Packs/Day Years [...] on file Sexual Orientation Not on file Obstetrics History Last Filed Vital Signs Vital Sign Reading [...] Mass Index 29.04 07/05/2024 2:58 PM EST Plan of Treatment Upcoming Encounters Date Type Department Care Team (Late st Contact Info) Description 11/21/2024 12:00 PM EDT Appointment [facility] Endoscopy [address] [place] [phone] Leila Mchugh MD [address] [address] 04/16/2025 3:45 PM EST Office Visit General Surgery - [place] [address] [phone] Acacia Manning MD [address] [address] 07/04/2025 2:45 PM EST Office Visit [facility] Hematology Oncology [address] [place] [phone] Kalani Massey DO [address] [place] [address] Health Maintenance Due Date Last Done Comments Breast Cancer Screening 1966 Diabetes: Annual GFR (Glomerular Filtration Rate) 1966 Diabetes: Annual Foot Exam 02/02/1976 Diabetes: Annual Retina Eye Exam 02/02/1976 DTaP,Tdap,and Td Vaccines (1 - Tdap) 1985 Hepatitis B Vaccines (1 of 3 - 19+ 3-dose series) 1985 Pneumococcal Vaccine: 50+ Years (1 of 2 - PCV) 1985 Pneumococcal Vaccine: Pediatrics (0 to 5 Years) and At-Risk Patients (6 to 64 Years) (1 of 2 - PCV) 1985 Cervical Cancer Screening: Pap Smear 1987 Cholesterol Screening (Lipid Panel) 05/21/2022 Colorectal Cancer Screening: Colonoscopy 05/21/2022 Depression Screening 05/21/2022 HIV Screening 05/21/2022 Hepatitis C Screening 05/21/2022 Social Influencers of Health Screening 05/21/2022 Hypertension/CHF/CAD Annual BMP Blood Test 06/06/2022 COVID-19 Vaccine ( season) 2024 11/12/2023, 07/11/2022, 10/11/2021, Additional history exists Influenza Vaccine (#1) 2024 , 05/09/2022, 04/24/2021, Additional history exists Diabetes: Annual Urine Albumin-Creatinine Ratio (uACR) 04/18/2024 Diabetes: Blood Sugar Control Test (HGBA1C) 04/18/2024 Zoster Vaccines Completed 07/11/2022, 11/25/2021 HIB Vaccines Aged Out No longer eligi ble based on patient's age to complete this topic HPV Vaccines Aged Out No longer eligi ble based on patient's age to complete this topic Hepatitis A Vaccines Aged Out No long er eligible based on patient's age to complete this topic IPV Vaccines Aged Out No longer eligi ble based on patient's age to complete this topic MMR Vaccines Aged Out No longer eligi ble based on patient's age to complete this topic Meningococcal ACWY Vaccine Aged Out N o longer eligible based on patient's age to complete this topic Meningococcal B Vacine Aged Out No lo nger eligible based on patient's age to complete this topic RSV Immunization Patients Under 20 months Aged Out No longer eligible based on patient's age to complete this topic Varicella Vaccines Aged Out No longer eligible based on patient's age to complete this topic Insurance [facility] Care Teams Cigar Bander Hand Relationship Specialty Start Date End Date Howie Walton MD [address] [place] [address] PCP - General 03/31/17
--- OUTSIDE RECORDS SUMMARY | 2024-07-31 16:36 | XMS_ITS | Encounter Summary ---
Author Organization [facility] Address [address] [facility] [address] [place] [address] Phone Care Team Providers Care Garageman Name Role Phone Howie Walton MD Primary Care Provider [phone] Reason for Visit * Reason Comments Med Refill Encounter Details Date Type Department Care Team ([facility] st Contact Info) Description 11/03/2023 Refill [facility] 100 [facility] [address] [place] [phone] Curtis Suarez MD [address] [facility] [address] [place] [phone] Social History Tobacco Use Types Packs/Day Years [...] on filedocumented in this encounter Care Teams Garageman Relationship Specialty Start Date End Date Howie Walton MD [address] [place] [phone] PCP - General 06/23/20 documented as of this encounter
--- OUTSIDE RECORDS SUMMARY | 2024-07-31 16:36 | XMS_ITS ---
Author Organization [facility] Address [address] [address] Care Team Providers Care Chain Saw Operator Name Role Phone ELLA FUENTES Primary Care Provider REASON FOR VISIT WM f/up Encounters Encounter Location Date Provider Diagnosis [facility] 294 [facility] 202 [place] [address] 06/27/2024 ELLA FUENTES Plan Of Treatment Next Appt Details Provider Name:Armida dean, 08/01/2024 03:30:00 PM, [address] [facility] [address], [place], [address], Progress Notes * Sol WEINSTEINOB:[birth year] (59 yo F)Acc No.[id number]:06/27/2024 Patient:?Breana WEINSTEIN Provider:?ELLA FUENTES MD :1965???Age:59 Y???Sex:Female D ate:06/27/2024 Address:[address] [place] [address], [place], [place] Subjective: * Chief Complaints: * ???1. WM f/up. * Medical History:? Objective: * Vitals:? Assessment: Plan: * Treatment: * * Electronic signature of ALICE FUENTES MD on 07/31/2024 at 04:36 PM EST Sign off status: Pending * Provider:?ELLA FUENTES MD Date:?06/27 Generated for Juan Miguel bush/Jia/Barry on:?07/31/2024 04:36 PM EST
== END 2024-07-31 16:16 | disposition home or self-care (01) ==
PROVIDERS: PCP Hospitalist; Visit Provider Internal Medicine Nephrology
DX: R80.8 Other proteinuria (principal); I10 Essential (primary) hypertension
CPT/HCPCS: 99214

== ENCOUNTER → 2024-07-31 15:55 | Outpatient (BNVA) | payer OTHER, SELFPAY | PROVIDERS: PCP Hospitalist; Visit Provider Internal Medicine Nephrology ==

== ENCOUNTER 2024-10-23 08:29 | Outpatient (REF) | payer OTHER, SELFPAY ==
--- OUTSIDE RECORDS SUMMARY | 2024-10-23 08:44 | XMS_ITS | Encounter Summary ---
Author Organization [facility] Address 100 [facility] [address] [place] [address] Phone Care Team Providers Care Director Fixed Income Name Role Phone Howie Walton MD Primary Care Provider [phone] Reason for Visit * Reason Comments Med Refill Encounter Details Date Type Department Care Team ([facility] st Contact Info) Description 10/21/2023 Refill [facility] 100 [facility] [address] [place] [phone] Curtis Suarez MD [address] [facility] 204 [place] [phone] Social History Tobacco Use Types Packs/Day Years [...] on filedocumented in this encounter Care Teams Director Fixed Income Relationship Specialty Start Date End Date Howie Walton MD [address] [place] [phone] PCP - General 06/23/20 documented as of this encounter
--- OUTSIDE RECORDS SUMMARY | 2024-10-23 08:44 | XMS_ITS | Data Portability ---
Author Organization [facility] Address [address] [place] [address] Care Team Providers Care Saddle Stitching Machine Operator Name Role Phone ELLA FUENTES Primary Care Provider [phone] Assessment No assessment recorded. Plan of Treatment Reminders Order Date Submit Date Provider Last Modified By Organization Details Last Modified Time Details Appointments None recorded. Lab SARS CoV 2 RNA (COVID-19), QL, ivory polisher-PCR, respiratory specimen 2022 [facility] [address] [place] [address], [address], 3 14:07:12 Referral None recorded. Procedures None [...] in this assay . Not Available [facility] ([facility]) [address] [facility], [place], [address], 01/26/2023 14:07:12 Result Notes None recorded. Problems Name Problem SNOMED Code Status Onset Date Resolution Date Notes Provider Name and Address Organization Details Recorded Time Malignant tumor of breast 768229917 Completed 202201/25/2023 CLAUS DRINKWINE null, [place] - [facility] 3 18:00:35 Diabetes mellitus 80961524 Active 2022 CLAUS DRINKWINE null, [place] - [facility] 3 18:00:43 Hypertensiv e disorder 77369795 Active 2022 CLAUS DRINKWINE null, [place] - [facility] 3 18:00:56 Hyperlipide madelyn 79963626 Active 2022 CLAUS DRINKWINE null, PA - [...] Name and Address Organization Details Recorded Time 821887 mold extract environme nt Not available Not available Not available 01/25/2023 13668 8 RxNorm CLAUS latif [facility] - [facility] [...] Updated DateTime 3 165.1 cm 29.6 kg/m2 01669.4 4 g 0 97.5 [degF] 16 /min 84 /min 98 % 98 % 122 mm[Hg] 78 mm[Hg] CLAUS SONGJUANITA PA - [facility] 3 18:05:50 Social History Question Answer Notes LastModified by Organizat ion Details LastModified Time Tobacco Smoking Status Never Smoker CLAUS DRINKWINE null, [place] - [facility] 01/25/2023 18:02:46 Have You Recently Traveled Abroad? No Information not available 01/25/2023 Sex: Unknown Functional Status Question Answer Note LastModified by Organizat ion Details LastModified Time Do you use any illicit or recreational drugs? No Information not available 01/25/2023 Do you or have you ever used any other forms of tobacco or nicotine? No Information not available 01/25/2023 Mental Status None recorded. Family History Relationship [...] SNOMED-CT Code Diagnosis ICD10 Code Diagnosis Note [id number] [address] [facility] [address] [place] [address] 10/26/2021 14:57:24 10/26/2021 18:00:09 [id number] Zeina Chavez MD [address] [facility] [address] [place] [address] 01/25/2023 17:32:21 01/25/2023 18:42:37 Exposure to viral disease 5456024518 55004 Z20.828 Labs pendingYou should follow-up with [facility] [...] Recorded Advance Directives Directive None Recorded Payers Insurance Date Sequence Insurance Name Policy Number Policy Hu Covered Member ID Hu Member ID Guarantor Name 01/25/2023 1 [facility] [id number] 1 Breana Faria [id number] Breana Faria 01/24/2023 1 [facility] [employer] - TOGETHER (MEDICAID HMO) [id number] Breana Faria [id number] Breana Faria Notes Date Note Type Note [...] Denies sob or fever. Zeina Chavez MD [address] [place] [address] [place], [address], [place] - [facility] 01/25/2023 18:46:41 OBGyn Episode No OBEpisode recorded.
--- OUTSIDE RECORDS SUMMARY | 2024-10-23 08:44 | XMS_ITS ---
Author Organization [facility] Address 294 [facility] 202 [place] [address] Care Team Providers Care Custom Shoe Designer And Maker Name Role Phone ALFREDO JARAMILLO Primary Care Provider Armida Peterson Unavailable [phone] REASON FOR VISIT WM f/up Medications Medication SIG (Take, Route, Frequency, Duration) Notes Start Date End Date Status Valsartan 320 MG 1 tablet Orally Once a day for 90 days Active Ondansetron HCl 4 MG 1 tablet Orally twi ce a day for 10 days 11/13/2023 Not-Taking Farxiga 5 MG 1 tablet Orally Once a day for 30 days 11/11/2023 Not-Taking Saline Nasal [place] 0.65 % 2 sprays in ea ch nostril as needed Nasally every 2 hrs Unknown Rosuvastatin Calcium 5 MG 1 tablet Orall y Once a day for 90 days Active Ketoconazole 2 % as directed External ly 2 times a day for 30 days 04/28/2023 Active metFORMIN HCl 1000 MG 1 tablet with a me al Orally twice a day for 90 days Active amLODIPine Besylate 5 MG TAKE 1 TABLET B Y MOUTH EVERY DAY for 30 Active Calcium + D3 600-200 MG-UNIT 1 tablet with a meal Orally Once a day for 30 day(s) Active Iron 325 (65 Fe) MG 1 tablet Orally Once a day for 30 day(s) Active dilTIAZem HCl 120 MG as directed Orally Active Latanoprost 0.005 % 1 drop into affected eye in the evening Ophthalmic Once a day Active Aspirin 81 81 MG 1 tablet Orally Once a day for 30 day(s) Active Encounters Encounter Location Date Provider Diagnosis [facility] 294 [facility] 202 [place] [address] 10/02/2024 Armida Peterson Plan Of Treatment Next Appt Details Provider Name:ELLA FUENTES , 10/31/2024 03:30:00 PM, [address] [facility] [address], [place], [address], Progress Notes * Parminder FARIAMayaOB:[birth year] (59 yo F)Acc No.[id number]:10/02/2024 Patient:?Breana FARIA Appointment Provider:?Armida Peterson :1965???Age:59 Y???Sex:Female D ate:10/02/2024 Address:[address] [place] [address], [facility] Pcp:ELLA FUENTES Subjective: * Chief Complaints: * ???1. WM f/up. * Medical History:? * Medications:?Taking dilTIAZe m HCl 120 MG Tablet as directed Orally , Taking Latanoprost 0.005 % Solution 1 drop into affected eye in the evening Ophthalmic Once a day , Taking Aspirin 81 81 MG Tablet Chewable 1 tablet Orally Once a day , Taking Calcium + D3 600-200 MG-UNIT Tablet 1 tablet with a meal Orally Once a day , Taking Iron 325 (65 Fe) MG Tablet 1 tablet Orally Once a day , Taking Ketoconazole 2 % Shampoo as directed Externally 2 times a day , Taking metFORMIN HCl 1000 MG Tablet 1 tablet with a meal Orally twice a day , Taking amLODIPine Besylate 5 MG Tablet TAKE 1 TABLET BY MOUTH EVERY DAY , Taking Valsartan 320 MG Tablet 1 tablet Orally Once a day , Taking Rosuvastatin Calcium 5 MG Tablet 1 tablet Orally Once a day , Not- Taking Ondansetron HCl 4 MG Tablet 1 tablet Orally twice a day , Not-Taking Farxiga 5 MG Tablet 1 tablet Orally Once a day , Unknown Saline Nasal [place] 0.65 % Solution 2 sprays in each nostril as needed Nasally every 2 hrs Objective: * Vitals:? Assessment: Plan: * Treatment: * Procedure Codes:?NOSHO NO SH OW FEE * Images: * Electronic signature of Claudia Peterson PA-C on 10/23/2024 at 08:44 AM EDT Sign off status: Pending * Appointment Provider:?Armida Sharma te:?10/02/2024 Generated for Juan Miguel bush/Jia/Barry on:?10/23/2024 08:44 AM EDT
--- OUTSIDE RECORDS SUMMARY | 2024-10-23 08:44 | XMS_ITS | Encounter Summary ---
Author Organization [facility] Address [address] [facility] 200 [place] [address] Phone Care Team Providers Care Cow Washer Name Role Phone Howie Walton MD Primary Care Provider [phone] Reason for Visit * Reason Comments Med Refill Encounter Details Date Type Department Care Team ([facility] st Contact Info) Description 11/03/2023 Refill [facility] 200 [place] [phone] Curtis Suarez MD [address] [facility] [address] [place] [address] Social History Tobacco Use Types Packs/Day Years [...] on filedocumented in this encounter Care Teams Cow Washer Relationship Specialty Start Date End Date Howie Walton MD [address] [place] [phone] PCP - General 06/23/20 documented as of this encounter
--- OUTSIDE RECORDS SUMMARY | 2024-10-23 08:44 | XMS_ITS ---
Author Organization [facility] Address 294 [facility] 202 [place] [address] Care Team Providers Care Sea Kayaking Guide Name Role Phone ALFREDO JARAMILLO Primary Care Provider [phone] Armida Peterson Unavailable [phone] REASON FOR VISIT WM f/up Medications Medication SIG (Take, Route, Frequency, Duration) Notes Start Date End Date Status Ketoconazole 2 % as directed External ly 2 times a day for 30 days 04/28/2023 Active Valsartan 320 MG 1 tablet Orally Once a day for 90 days Active amLODIPine Besylate 5 MG TAKE 1 TABLET B Y MOUTH EVERY DAY for 30 Active metFORMIN HCl 1000 MG 1 tablet with a me al Orally twice a day for 90 days Active Rosuvastatin Calcium 5 MG TAKE 1 TABLET BY MOUTH EVERY DAY IN THE EVENING for 30 Active Latanoprost 0.005 % 1 drop into affected eye in the evening Ophthalmic Once a day Active dilTIAZem HCl 120 MG as directed Orally Active Iron 325 (65 Fe) MG 1 tablet Orally Once a day for 30 day(s) Active Calcium + D3 600-200 MG-UNIT 1 tablet with a meal Orally Once a day for 30 day(s) Active Aspirin 81 81 MG 1 tablet Orally Once a day for 30 day(s) Active Ondansetron HCl 4 MG 1 tablet Orally twi ce a day for 10 days 11/13/2023 Not-Taking Saline Nasal [place] 0.65 % 2 sprays in ea ch nostril as needed Nasally every 2 hrs Unknown Farxiga 5 MG 1 tablet Orally Once a day for 30 days 11/11/2023 Not-Taking Encounters Encounter Location Date Provider Diagnosis [facility] 294 [facility] [address] [place] [address] 08/29/2024 Armida Peterson Plan Of Treatment Next Appt Details Provider Name:ELLA FUENTES , 10/31/2024 03:30:00 PM, [address] [facility] [address], [place], [address], Progress Notes * Sol FARIAOB:[birth year] (59 yo F)Acc No.[id number]:08/29/2024 Patient:?Breana FARIA Appointment Provider:?Armida Peterson :1965???Age:59 Y???Sex:Female D ate:08/29/2024 Address:[address] [place] [address], [facility] Pcp:ELLA FUENTES Subjective: * Chief Complaints: * [...] Externally 2 times a day , Taking Rosuvastatin Calcium 5 MG Tablet TAKE 1 TABLET BY MOUTH EVERY DAY IN THE EVENING , Taking metFORMIN HCl 1000 MG Tablet 1 tablet with a meal Orally twice a day , Taking amLODIPine Besylate 5 MG Tablet TAKE 1 TABLET BY MOUTH EVERY DAY , Taking Valsartan 320 MG Tablet 1 tablet Orally Once a day , Not-Taking Ondansetron HCl 4 MG Tablet 1 tablet Orally twice a day , Not-Taking Farxiga 5 MG Tablet 1 tablet Orally Once a day , Unknown Saline Nasal [place] 0.65 % Solution 2 sprays in each nostril as needed Nasally every 2 hrs Objective: * Vitals:? Assessment: Plan: * Treatment: * Images: * Electronic signature of Claudia Peterson PA-C on 10/23/2024 at 08:44 AM EDT Sign off status: Pending * Appointment Provider:?Armida Sharma te:?08/29/2024 Generated for Juan Miguel bush/Jia/Barry on:?10/23/2024 08:44 AM EDT
--- OUTSIDE RECORDS SUMMARY | 2024-10-23 08:45 | XMS_ITS | Clinical Summary ---
Author Organization [facility] Address [address] [place] [address] Phone Care Team Providers Care Risk Assessor Name Role Phone Howie Walton MD Primary Care Provider [phone] Allergies No known active allergies Medications aspirin [...] 09/08/2021 Proteinuria 09/07/2020 Essential hypertension 06/08/2019 Immunizations Immunization Administration Dates Next Due Influenza (IM) Preservative [...] Last Done Comments Breast Cancer Screening 1965 Hepatitis B Vaccine (1 of 3 - 19+ 3-dose series) 1985 Pneumococcal Vaccine: 50+ Ye ars (1 of 2 - PCV) 1985 Colorectal Cancer Screening: Annual FOBT 2015 Colorectal Cancer Screening: Colonoscopy 2015 Colorectal Cancer Screening: Sigmoidoscopy 2015 Diabetes: Hemoglobin A1C 12/07/2022 Diabetes: Ophthalmology Exam 12/07/2022 Diabetes: Pedal Pulse Checked 12/07/2022 Diabetes: Sensory Foot Exam 12/07/2022 Diabetes: Visual Foot Exam 12/07/2022 Influenza Vaccine (Season Ended) 2025 05/09/2022, 04/24/2021, 02/28/2019, Additional history exists [place] [address] [facility] Care Teams Risk Assessor Relationship Specialty Start Date End Date Howie Walton MD [address] [place] [address] PCP - General 06/23/20
--- OUTSIDE RECORDS SUMMARY | 2024-10-23 08:45 | XMS_ITS | Patient Health Record ---
Author Organization [facility] Address [address] [place] [address] Care Team Providers Care Academic Affairs Director Name Role Phone ELLA FUENTES Primary Care Provider [phone] LukemarleniArmida virgen Unavailable [phone] Allergies No Known Allergies Results Component Value Reference Range Notes Hemoglobin [id number] Reviewed date:09/06/2024 04:21:53 PM Interpretation: Performing Lab:[facility], [address] [place] [address], [place], Phone - [phone], Director - Mehdi Notes/Report: Hemoglobin A1c 8.0 4.8-5.6 % . Prediabetes: 5.7 - 6.4 Diabetes: >6.4 Glycemic control for adults with diabetes: <7.0 Reason For Referral No Information Medications Medication SIG (Take, Route, Frequency, Duration) Notes Start Date End Date Status Ketoconazole 2 % as directed External ly 2 times a day for 30 days 04/28/2023 Active metFORMIN HCl 1000 MG 1 tablet with a me al Orally twice a day for 90 days Active amLODIPine Besylate 5 MG TAKE 1 TABLET B Y MOUTH EVERY DAY for 30 Active Valsartan 320 MG 1 tablet Orally Once a day for 90 days Active Ondansetron HCl 4 MG 1 tablet Orally twi ce a day for 10 days 11/13/2023 Not-Taking Farxiga 5 MG 1 tablet Orally Once a day for 30 days 11/11/2023 Not-Taking dilTIAZem HCl 120 MG as directed Orally Active Saline Nasal [place] 0.65 % 2 sprays in ea ch nostril as needed Nasally every 2 hrs Unknown Latanoprost 0.005 % 1 drop into affected eye in the evening Ophthalmic Once a day Active Rosuvastatin Calcium 5 MG 1 tablet Orall y Once a day for 90 days Active Aspirin 81 81 MG 1 tablet Orally Once a day for 30 day(s) Active Calcium + D3 600-200 MG-UNIT 1 tablet with a meal Orally Once a day for 30 day(s) Active Iron 325 (65 Fe) MG 1 tablet Orally Once a day for 30 day(s) Active Immunizations Vaccine Route Administration Date Status Comme nts COVID 19 Pfizer Unknown 09/01/2020 Administered COVID 19 Pfizer Unknown 09/21/2020 Administered COVID 19 Pfizer Unknown 04/10/2021 Administered COVID Pfizer Unknown 10/11/2021 Administered COVID-19 Pfizer Unknown 07/11/2022 Administered Flu Shot Unknown 05/09/2022 Administered Influenza (split), seasonal, intradermal, preservative free Unknown 04/24/2021 Administered Influenza, seasonal, injectable, preservative free, 3 yrs and above IM Intramuscular 02/28/2019 Administered Shingrix Unknown 11/25/2021 Administered Shingrix Unknown 07/11/2022 Administered Social History Tobacco Use: Social History Observation Description Date Details (start date - stop date) Never Smoker NA - NA Tobacco Use/Smoking Question Answer Notes Are you a nonsmoker Problems Problem Type SNOMED Code ICD Code Onset Dates Problem Status W/U Status Risk Notes Problem Type II diabetes mellitus without complication (371820945) Type 2 diabetes mellitus without complications (E11.9) Active confirmed Problem Obesity due to excess calories (266070659) Other obesity due to excess calories (E66.09) Active confirmed Problem Mixed hyperlipidemia (196020052) Mixed hyperlipidemia (E78.2) Active confirmed Problem Occlusion and 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 (237546400) Occlusion and stenosis of bilateral carotid arteries (I65.23) Active confirmed Problem Personal history of primary malignant neoplasm of breast (022427515) Personal history of malignant neoplasm of breast (Z85.3) Active confirmed Problem Essential hypertension (96046829) Essential (primary) hypertension (I10) Active confirmed Vital Signs Heart Rate 90 /min 08/01/2024 Temperature 98.2 degrees Fahrenheit 08/01/2024 Blood pressure diastolic 82 mm Hg 08/01/2024 Oximetry 100 % 08/01/2024 Height 65.51 in 08/01/2024 Blood pressure systolic 120 mm Hg 08/01/2024 Weight 181.1 lbs 08/01/2024 BMI 29.67 kg/m2 08/01/2024 Encounters Encounter Location Date Provider Diagnosis [facility] [address] [place] [address] 10/27/2023 [facility] [address] [place] [address] 11/08/2023 [facility] [address] [place] [address] 11/11/2023 [facility] [address] [place] [address] 11/13/2023 [facility] [address] [place] [address] 03/27/2024 [facility] [address] [place] [address] 07/16/2024 [facility] [address] [place] [address] 09/05[facility] [address] [place] [address] 11/22/2023 JAARMILLO GUL Other obesity due to excess calories E66.09 and Dietary counseling and surveillance Z71.3 [facility] [address] [facility] [place] [address] 12/20/2023 JARAMILLO GUL Other obesity due to excess calories E66.09 and Dietary counseling and surveillance Z71.3 [facility] [address] [place] [address] 01/18/2024 JARAMILLO GUL Other obesity due to excess calories E66.09 and Dietary counseling and surveillance Z71.3 [facility] [address] [facility] [place] [address] 02/22/2024 JARAMILLO GUL Other obesity due to excess calories E66.09 and Dietary counseling and surveillance Z71.[address] [place] [address] 03/21/2024 JARAMILLO ALFREDO [address] [place] [address] 04/02/2024 JARAMILLO GUL Other obesity due to excess calories E66.09 and Dietary counseling and surveillance Z71.[address] [place] [address] 05/02/2024 JARAMILLO GUL Other obesity due to excess calories E66.09 and Dietary counseling and surveillance Z71.[address] [place] [address] 05/30/2024 JARAMILLO GUL Other obesity due to excess calories E66.09 and Dietary counseling and surveillance Z71.[address] [place] [address] 06/27/2024 JARAMILLO ALFREDO [address] [address] 08/01/2024 Armida Peterson Other obesity due to excess calories E66.09 ; Dietary counseling and surveillance Z71.3 ; Impaired fasting blood sugar R73.01 and Essential (primary) hypertension I10 [address] [address] 07/25/2024 Armida Lukemarlenium [address] [address] 10/02/2024 Mellissatatianatacho Butlerhansa Assessments Encounter Date Diagnosis (ICD Code) Assessment Notes Treatment Notes Treatment Clinical Notes Section Notes 11/22/2023 Other obesity due to excess calories (ICD-10 - E66.09) Mrs Faria is a 58-year-old lady here today for follow up on medical weight management.We saw her in October. She lost 14 pounds in total and lost almost 2 lbs since last visit. Plan is as follows: Dietary recommendations. Food recall was done today and patient advised to be on low calorie, low carbohydrate diet. Restrict calories to less than 1500 kcal in 24 hours. Low glycemic index foods and encouraged. Meal replacements were recommended. Advised to use xwjm-vok-vyvrzba multivitamins and vitamin D. Advised to use calorie counter and adhere to portion control. Monthly goal is to lose 4-6 pounds Pharmacotherapy. She is not on pharmacotherapy. D/W patient that she should try Qsymia or Contrave and check with insurance if it is covered. Side effects explained to the patient. Goal is to lose 3-5% of body weight in 3 months. Exercise. Patient encouraged to increase frequency, intensity and duration of exercise. Encouraged to burn at least 250-500 kcal in one session. Also encouraged to do weight training Assess. Different risk factors discussed with the patient and addressed Advise. Patient was given clear And specific advise that she will comply with Low-calorie diet and try not to exceed more than 1300 kcal in 24 hours. Agree. Mutually agreed to work together to achieve appropriate goals Assist. Motivational interviewing done. Arrange. Follow-up appointment arranged. Counseling. 15 minutes spent Face to face with the patient more than 50% of time was spent counseling Blood work reviewed with patient and questions answered. Scribe services used to formulate this note under HIPAA compliance and under [place] law mandated for scribe services. Patient aware of service. Verbal consent and written consent taken from the patient. Patient understands and verbalizes understanding of the scribes services and all questions answered regarding scribes services. Patient agrees to use of scribes services. 11/22/2023 Dietary counseling and surveillance (ICD-10 - Z71.3) Mrs Faria is a 58-year-old lady here today for follow up on medical weight management.We saw her in October. She lost 14 pounds in total and lost almost 2 lbs since last visit. Plan is as follows: Dietary recommendations. Food recall was done today and patient advised to be on low calorie, low carbohydrate diet. Restrict calories to less than 1500 kcal in 24 hours. Low glycemic index foods and encouraged. Meal replacements were recommended. Advised to use euqm-kge-vtbggwp multivitamins and vitamin D. Advised to use calorie counter and adhere to portion control. Monthly goal is to lose 4-6 pounds Pharmacotherapy. She is not on pharmacotherapy. D/W patient that she should try Qsymia or Contrave and check with insurance if it is covered. Side effects explained to the patient. Goal is to lose 3-5% of body weight in 3 months. Exercise. Patient encouraged to increase frequency, intensity and duration of exercise. Encouraged to burn at least 250-500 kcal in one session. Also encouraged to do weight training Assess. Different risk factors discussed with the patient and addressed Advise. Patient was given clear And specific advise that she will comply with Low-calorie diet and try not to exceed more than 1300 kcal in 24 hours. Agree. Mutually agreed to work together to achieve appropriate goals Assist. Motivational interviewing done. Arrange. Follow-up appointment arranged. Counseling. 15 minutes spent Face to face with the patient more than 50% of time was spent counseling Blood work reviewed with patient and questions answered. Scribe services used to formulate this note under HIPAA compliance and under [place] law mandated for scribe services. Patient aware of service. Verbal consent and written consent taken from the patient. Patient understands and verbalizes understanding of the scribes services and all questions answered regarding scribes services. Patient agrees to use of scribes services. 12/20/2023 Other obesity due to excess calories (ICD-10 - E66.09) Mrs Faria is a 58-year-old lady here today for follow up on medical weight management. We saw her in November. She lost 16 pounds in total and lost 2 lbs since last visit. Plan is as follows: Dietary recommendations. Food recall was done today and patient advised to be on low calorie, low carbohydrate diet. Restrict calories to less than 1500 kcal in 24 hours. Low glycemic index foods and encouraged. Meal replacements were recommended. Advised to use qdvr-hpn-xxeweec multivitamins and vitamin D. Advised to use calorie counter and adhere to portion control. Monthly goal is to lose 4-6 pounds Pharmacotherapy. She is not on pharmacotherapy. D/W patient that she should try Qsymia or Contrave and check with insurance if it is covered. Side effects explained to the patient. Goal is to lose 3-5% of body weight in 3 months. Exercise. Patient encouraged to increase frequency, intensity and duration of exercise. Encouraged to burn at least 250-500 kcal in one session. Also encouraged to do weight training Assess. Different risk factors discussed with the patient and addressed Advise. Patient was given clear And specific advise that she will comply with Low-calorie diet and try not to exceed more than 1300 kcal in 24 hours. Agree. Mutually agreed to work together to achieve appropriate goals Assist. Motivational interviewing done. Arrange. Follow-up appointment arranged. Counseling. 15 minutes spent Face to face with the patient more than 50% of time was spent counseling Scribe services used to formulate this note under HIPAA compliance and under [place] law mandated for scribe services. Patient aware of service. Verbal consent and written consent taken from the patient. Patient understands and verbalizes understanding of the scribes services and all questions answered regarding scribes services. Patient agrees to use of scribes services. 12/20/2023 Dietary counseling and surveillance (ICD-10 - Z71.3) Mrs Faria is a 58-year-old lady here today for follow up on medical weight management. We saw her in November. She lost 16 pounds in total and lost 2 lbs since last visit. Plan is as follows: Dietary recommendations. Food recall was done today and patient advised to be on low calorie, low carbohydrate diet. Restrict calories to less than 1500 kcal in 24 hours. Low glycemic index foods and encouraged. Meal replacements were recommended. Advised to use hzyr-gay-zkleqhw multivitamins and vitamin D. Advised to use calorie counter and adhere to portion control. Monthly goal is to lose 4-6 pounds Pharmacotherapy. She is not on pharmacotherapy. D/W patient that she should try Qsymia or Contrave and check with insurance if it is covered. Side effects explained to the patient. Goal is to lose 3-5% of body weight in 3 months. Exercise. Patient encouraged to increase frequency, intensity and duration of exercise. Encouraged to burn at least 250-500 kcal in one session. Also encouraged to do weight training Assess. Different risk factors discussed with the patient and addressed Advise. Patient was given clear And specific advise that she will comply with Low-calorie diet and try not to exceed more than 1300 kcal in 24 hours. Agree. Mutually agreed to work together to achieve appropriate goals Assist. Motivational interviewing done. Arrange. Follow-up appointment arranged. Counseling. 15 minutes spent Face to face with the patient more than 50% of time was spent counseling Scribe services used to formulate this note under HIPAA compliance and under [place] law mandated for scribe services. Patient aware of service. Verbal consent and written consent taken from the patient. Patient understands and verbalizes understanding of the scribes services and all questions answered regarding scribes services. Patient agrees to use of scribes services. 02/22/2024 Other obesity due to excess calories (ICD-10 - E66.09) Mrs Faria is a 58-year-old lady here today for follow up on medical weight management. We saw her in December. She lost 19 pounds in total 3 lbs since last visit. Plan is as follows: Dietary recommendations. Food recall was done today and patient advised to be on low calorie, low carbohydrate diet. Restrict calories to less than 1500 kcal in 24 hours. Low glycemic index foods and encouraged. Meal replacements were recommended. Advised to use xbdg-yom-jteywwz multivitamins and vitamin D. Advised to use calorie counter and adhere to portion control. Monthly goal is to lose 4-6 pounds Pharmacotherapy. She is not on pharmacotherapy. D/W patient that she should try Qsymia or Contrave and check with insurance if it is covered. Side effects explained to the patient. Goal is to lose 3-5% of body weight in 3 months. Exercise. Patient encouraged to increase frequency, intensity and duration of exercise. Encouraged to burn at least 250-500 kcal in one session. Also encouraged to do weight training Assess. Different risk factors discussed with the patient and addressed Advise. Patient was given clear And specific advise that she will comply with Low-calorie diet and try not to exceed more than 1300 kcal in 24 hours. Agree. Mutually agreed to work together to achieve appropriate goals Assist. Motivational interviewing done. Arrange. Follow-up appointment arranged. Counseling. 15 minutes spent Face to face with the patient more than 50% of time was spent counseling Scribe services used to formulate this note under HIPAA compliance and under [place] law mandated for scribe services. Patient aware of service. Verbal consent and written consent taken from the patient. Patient understands and verbalizes understanding of the scribes services and all questions answered regarding scribes services. Patient agrees to use of scribes services. 02/22/2024 Dietary counseling and surveillance (ICD-10 - Z71.3) Mrs Faria is a 58-year-old lady here today for follow up on medical weight management. We saw her in December. She lost 19 pounds in total 3 lbs since last visit. Plan is as follows: Dietary recommendations. Food recall was done today and patient advised to be on low calorie, low carbohydrate diet. Restrict calories to less than 1500 kcal in 24 hours. Low glycemic index foods and encouraged. Meal replacements were recommended. Advised to use npkp-uxy-uedqbpd multivitamins and vitamin D. Advised to use calorie counter and adhere to portion control. Monthly goal is to lose 4-6 pounds Pharmacotherapy. She is not on pharmacotherapy. D/W patient that she should try Qsymia or Contrave and check with insurance if it is covered. Side effects explained to the patient. Goal is to lose 3-5% of body weight in 3 months. Exercise. Patient encouraged to increase frequency, intensity and duration of exercise. Encouraged to burn at least 250-500 kcal in one session. Also encouraged to do weight training Assess. Different risk factors discussed with the patient and addressed Advise. Patient was given clear And specific advise that she will comply with Low-calorie diet and try not to exceed more than 1300 kcal in 24 hours. Agree. Mutually agreed to work together to achieve appropriate goals Assist. Motivational interviewing done. Arrange. Follow-up appointment arranged. Counseling. 15 minutes spent Face to face with the patient more than 50% of time was spent counseling Scribe services used to formulate this note under HIPAA compliance and under [place] law mandated for scribe services. Patient aware of service. Verbal consent and written consent taken from the patient. Patient understands and verbalizes understanding of the scribes services and all questions answered regarding scribes services. Patient agrees to use of scribes services. 04/02/2024 Other obesity due to excess calories (ICD-10 - E66.09) Mrs Faria is a 58-year-old lady here today for follow up on medical weight management. We saw her in February. She lost 19 pounds in total and gained 3 lbs since last time. she weighed 169.9 pounds on her scale this morning. Plan is as follows: Dietary recommendations. Food recall was done today and patient advised to be on low calorie, low carbohydrate diet. Restrict calories to less than 1500 kcal in 24 hours. Low glycemic index foods and encouraged. Meal replacements were recommended. Advised to use vdsd-bfu-urshmxz multivitamins and vitamin D. Advised to use calorie counter and adhere to portion control. Monthly goal is to lose 4-6 pounds Pharmacotherapy. She is not on pharmacotherapy. D/W patient that she should try Qsymia or Contrave and check with insurance if it is covered. Side effects explained to the patient. Goal is to lose 3-5% of body weight in 3 months. Exercise. Patient encouraged to increase frequency, intensity and duration of exercise. Encouraged to burn at least 250-500 kcal in one session. Also encouraged to do weight training Assess. Different risk factors discussed with the patient and addressed Advise. Patient was given clear And specific advise that she will comply with Low-calorie diet and try not to exceed more than 1300 kcal in 24 hours. Agree. Mutually agreed to work together to achieve appropriate goals Assist. Motivational interviewing done. Arrange. Follow-up appointment arranged. Counseling. 15 minutes spent Face to face with the patient more than 50% of time was spent counseling Scribe services used to formulate this note under HIPAA compliance and under [place] law mandated for scribe services. Patient aware of service. Verbal consent and written consent taken from the patient. Patient understands and verbalizes understanding of the scribes services and all questions answered regarding scribes services. Patient agrees to use of scribes services. 04/02/2024 Dietary counseling and surveillance (ICD-10 - Z71.3) Mrs Faria is a 58-year-old lady here today for follow up on medical weight management. We saw her in February. She lost 19 pounds in total and gained 3 lbs since last time. she weighed 169.9 pounds on her scale this morning. Plan is as follows: Dietary recommendations. Food recall was done today and patient advised to be on low calorie, low carbohydrate diet. Restrict calories to less than 1500 kcal in 24 hours. Low glycemic index foods and encouraged. Meal replacements were recommended. Advised to use qhyo-igi-qvbnbih multivitamins and vitamin D. Advised to use calorie counter and adhere to portion control. Monthly goal is to lose 4-6 pounds Pharmacotherapy. She is not on pharmacotherapy. D/W patient that she should try Qsymia or Contrave and check with insurance if it is covered. Side effects explained to the patient. Goal is to lose 3-5% of body weight in 3 months. Exercise. Patient encouraged to increase frequency, intensity and duration of exercise. Encouraged to burn at least 250-500 kcal in one session. Also encouraged to do weight training Assess. Different risk factors discussed with the patient and addressed Advise. Patient was given clear And specific advise that she will comply with Low-calorie diet and try not to exceed more than 1300 kcal in 24 hours. Agree. Mutually agreed to work together to achieve appropriate goals Assist. Motivational interviewing done. Arrange. Follow-up appointment arranged. Counseling. 15 minutes spent Face to face with the patient more than 50% of time was spent counseling Scribe services used to formulate this note under HIPAA compliance and under [place] law mandated for scribe services. Patient aware of service. Verbal consent and written consent taken from the patient. Patient understands and verbalizes understanding of the scribes services and all questions answered regarding scribes services. Patient agrees to use of scribes services. 05/02/2024 Other obesity due to excess calories (ICD-10 - E66.09) Mrs Faria is a 58-year-old lady here today for follow up on medical weight management. We saw her in March. She lost 19 pounds in total and gained 5 lbs since last time. Plan is as follows: Dietary recommendations. Food recall was done today and patient advised to be on low calorie, low carbohydrate diet. Restrict calories to less than 1500 kcal in 24 hours. Low glycemic index foods and encouraged. Meal replacements were recommended. Advised to use npak-jbh-swaokkj multivitamins and vitamin D. Advised to use calorie counter and adhere to portion control. Monthly goal is to lose 4-6 pounds Pharmacotherapy. She is not on pharmacotherapy. D/W patient that she can try phentermine low-dose and we also offered free sample of GLP-1 but she will think about it. Side effects explained to the patient. Goal is to lose 3-5% of body weight in 3 months. Exercise. Patient encouraged to increase frequency, intensity and duration of exercise. Encouraged to burn at least 250-500 kcal in one session. Also encouraged to do weight training Assess. Different risk factors discussed with the patient and addressed Advise. Patient was given clear And specific advise that she will comply with Low-calorie diet and try not to exceed more than 1300 kcal in 24 hours. Agree. Mutually agreed to work together to achieve appropriate goals Assist. Motivational interviewing done. Arrange. Follow-up appointment arranged. Counseling. 15 minutes spent Face to face with the patient more than 50% of time was spent counseling Scribe services used to formulate this note under HIPAA compliance and under [place] law mandated for scribe services. Patient aware of service. Verbal consent and written consent taken from the patient. Patient understands and verbalizes understanding of the scribes services and all questions answered regarding scribes services. Patient agrees to use of scribes services. 05/02/2024 Dietary counseling and surveillance (ICD-10 - Z71.3) Mrs Faria is a 58-year-old lady here today for follow up on medical weight management. We saw her in March. She lost 19 pounds in total and gained 5 lbs since last time. Plan is as follows: Dietary recommendations. Food recall was done today and patient advised to be on low calorie, low carbohydrate diet. Restrict calories to less than 1500 kcal in 24 hours. Low glycemic index foods and encouraged. Meal replacements were recommended. Advised to use dpdr-lji-bovxnmx multivitamins and vitamin D. Advised to use calorie counter and adhere to portion control. Monthly goal is to lose 4-6 pounds Pharmacotherapy. She is not on pharmacotherapy. D/W patient that she can try phentermine low-dose and we also offered free sample of GLP-1 but she will think about it. Side effects explained to the patient. Goal is to lose 3-5% of body weight in 3 months. Exercise. Patient encouraged to increase frequency, intensity and duration of exercise. Encouraged to burn at least 250-500 kcal in one session. Also encouraged to do weight training Assess. Different risk factors discussed with the patient and addressed Advise. Patient was given clear And specific advise that she will comply with Low-calorie diet and try not to exceed more than 1300 kcal in 24 hours. Agree. Mutually agreed to work together to achieve appropriate goals Assist. Motivational interviewing done. Arrange. Follow-up appointment arranged. Counseling. 15 minutes spent Face to face with the patient more than 50% of time was spent counseling Scribe services used to formulate this note under HIPAA compliance and under [place] law mandated for scribe services. Patient aware of service. Verbal consent and written consent taken from the patient. Patient understands and verbalizes understanding of the scribes services and all questions answered regarding scribes services. Patient agrees to use of scribes services. 05/30/2024 Other obesity due to excess calories (ICD-10 - E66.09) Mrs Faria is a 58-year-old lady here today for follow up on medical weight management. We saw her in March. She lost 19 pounds in total and gained 1 lbs since last time. and she weighed 175.4 on her scale Plan is as follows: Dietary recommendations. Food recall was done today and patient advised to be on low calorie, low carbohydrate diet. Restrict calories to less than 1500 kcal in 24 hours. Low glycemic index foods and encouraged. Meal replacements were recommended. Advised to use ifod-hmi-vaywkds multivitamins and vitamin D. Advised to use calorie counter and adhere to portion control. Monthly goal is to lose 4-6 pounds Pharmacotherapy. She is not on pharmacotherapy. D/W patient that she can try phentermine low-dose and we also offered free sample of GLP-1 but she will think about it. Side effects explained to the patient. Goal is to lose 3-5% of body weight in 3 months. Exercise. Patient encouraged to increase frequency, intensity and duration of exercise. Encouraged to burn at least 250-500 kcal in one session. Also encouraged to do weight training Assess. Different risk factors discussed with the patient and addressed Advise. Patient was given clear And specific advise that she will comply with Low-calorie diet and try not to exceed more than 1300 kcal in 24 hours. Agree. Mutually agreed to work together to achieve appropriate goals Assist. Motivational interviewing done. Arrange. Follow-up appointment arranged. Counseling. 15 minutes spent Face to face with the patient more than 50% of time was spent counseling Scribe services used to formulate this note under HIPAA compliance and under [place] law mandated for scribe services. Patient aware of service. Verbal consent and written consent taken from the patient. Patient understands and verbalizes understanding of the scribes services and all questions answered regarding scribes services. Patient agrees to use of scribes services. 05/30/2024 Dietary counseling and surveillance (ICD-10 - Z71.3) Mrs Faria is a 58-year-old lady here today for follow up on medical weight management. We saw her in March. She lost 19 pounds in total and gained 1 lbs since last time. and she weighed 175.4 on her scale Plan is as follows: Dietary recommendations. Food recall was done today and patient advised to be on low calorie, low carbohydrate diet. Restrict calories to less than 1500 kcal in 24 hours. Low glycemic index foods and encouraged. Meal replacements were recommended. Advised to use ntpa-kes-xkglvxb multivitamins and vitamin D. Advised to use calorie counter and adhere to portion control. Monthly goal is to lose 4-6 pounds Pharmacotherapy. She is not on pharmacotherapy. D/W patient that she can try phentermine low-dose and we also offered free sample of GLP-1 but she will think about it. Side effects explained to the patient. Goal is to lose 3-5% of body weight in 3 months. Exercise. Patient encouraged to increase frequency, intensity and duration of exercise. Encouraged to burn at least 250-500 kcal in one session. Also encouraged to do weight training Assess. Different risk factors discussed with the patient and addressed Advise. Patient was given clear And specific advise that she will comply with Low-calorie diet and try not to exceed more than 1300 kcal in 24 hours. Agree. Mutually agreed to work together to achieve appropriate goals Assist. Motivational interviewing done. Arrange. Follow-up appointment arranged. Counseling. 15 minutes spent Face to face with the patient more than 50% of time was spent counseling Scribe services used to formulate this note under HIPAA compliance and under [place] law mandated for scribe services. Patient aware of service. Verbal consent and written consent taken from the patient. Patient understands and verbalizes understanding of the scribes services and all questions answered regarding scribes services. Patient agrees to use of scribes services. 08/01/2024 Other obesity due to excess calories (ICD-10 - E66.09) Mrs Faria is a 59-year-old lady here today for follow up on medical weight management. We saw her in March. She lost 19 pounds in total and gained 1 lbs since last time. and she weighed 175.4 on her scale Plan is as follows: Dietary recommendations. Food recall was done today and patient advised to be on low calorie, low carbohydrate diet. Restrict calories to less than 1500 kcal in 24 hours. Low glycemic index foods and encouraged. Meal replacements were recommended. Advised to use isgw-lwb-qdruhjw multivitamins and vitamin D. Advised to use calorie counter and adhere to portion control. Monthly goal is to lose 4-6 pounds Pharmacotherapy. Currently on Metformin 1000mg BID for diabetes. D/W patient that she can try phentermine low-dose and we also offered free sample of GLP-1 but she will think about it. Side effects explained to the patient. Goal is to lose 3-5% of body weight in 3 months. Exercise. Patient encouraged to increase frequency, intensity and duration of exercise. Encouraged to burn at least 250-500 kcal in one session. Also encouraged to do weight training Assess. Different risk factors discussed with the patient and addressed Advise. Patient was given clear And specific advise that she will comply with Low-calorie diet and try not to exceed more than 1300 kcal in 24 hours. Agree. Mutually agreed to work together to achieve appropriate goals Assist. Motivational interviewing done. Arrange. Follow-up appointment arranged. Counseling. 15 minutes spent Face to face with the patient more than 50% of time was spent counseling Type 2 diabetes - Previous A1c of 6.8. She is currently on metformin thousand milligrams twice daily. She defers a GLP-1 for now Advised on diet modification. Check A1c Hypertension - Blood pressure is well controlled. Continue the same regimen I have rendered the services for this patient under direct supervision of Dr. Fuentes, who did not see the patient but was available upon request 08/01/2024 Dietary counseling and surveillance (ICD-10 - Z71.3) Mrs Faria is a 59-year-old lady here today for follow up on medical weight management. We saw her in March. She lost 19 pounds in total and gained 1 lbs since last time. and she weighed 175.4 on her scale Plan is as follows: Dietary recommendations. Food recall was done today and patient advised to be on low calorie, low carbohydrate diet. Restrict calories to less than 1500 kcal in 24 hours. Low glycemic index foods and encouraged. Meal replacements were recommended. Advised to use mplk-loc-ryqwths multivitamins and vitamin D. Advised to use calorie counter and adhere to portion control. Monthly goal is to lose 4-6 pounds Pharmacotherapy. Currently on Metformin 1000mg BID for diabetes. D/W patient that she can try phentermine low-dose and we also offered free sample of GLP-1 but she will think about it. Side effects explained to the patient. Goal is to lose 3-5% of body weight in 3 months. Exercise. Patient encouraged to increase frequency, intensity and duration of exercise. Encouraged to burn at least 250-500 kcal in one session. Also encouraged to do weight training Assess. Different risk factors discussed with the patient and addressed Advise. Patient was given clear And specific advise that she will comply with Low-calorie diet and try not to exceed more than 1300 kcal in 24 hours. Agree. Mutually agreed to work together to achieve appropriate goals Assist. Motivational interviewing done. Arrange. Follow-up appointment arranged. Counseling. 15 minutes spent Face to face with the patient more than 50% of time was spent counseling Type 2 diabetes - Previous A1c of 6.8. She is currently on metformin thousand milligrams twice daily. She defers a GLP-1 for now Advised on diet modification. Check A1c Hypertension - Blood pressure is well controlled. Continue the same regimen I have rendered the services for this patient under direct supervision of Dr. Fuentes, who did not see the patient but was available upon request 01/18/2024 Other obesity due to excess calories (ICD-10 - E66.09) Mrs Faria is a 58-year-old lady here today for follow up on medical weight management. We saw her in December. She lost 16 pounds in total and no weight change since last visit. Plan is as follows: Dietary recommendations. Food recall was done today and patient advised to be on low calorie, low carbohydrate diet. Restrict calories to less than 1500 kcal in 24 hours. Low glycemic index foods and encouraged. Meal replacements were recommended. Advised to use thmp-tki-lnqfutk multivitamins and vitamin D. Advised to use calorie counter and adhere to portion control. Monthly goal is to lose 4-6 pounds Pharmacotherapy. She is not on pharmacotherapy. D/W patient that she should try Qsymia or Contrave and check with insurance if it is covered. Side effects explained to the patient. Goal is to lose 3-5% of body weight in 3 months. Exercise. Patient encouraged to increase frequency, intensity and duration of exercise. Encouraged to burn at least 250-500 kcal in one session. Also encouraged to do weight training Assess. Different risk factors discussed with the patient and addressed Advise. Patient was given clear And specific advise that she will comply with Low-calorie diet and try not to exceed more than 1300 kcal in 24 hours. Agree. Mutually agreed to work together to achieve appropriate goals Assist. Motivational interviewing done. Arrange. Follow-up appointment arranged. Counseling. 15 minutes spent Face to face with the patient more than 50% of time was spent counseling Scribe services used to formulate this note under HIPAA compliance and under [place] law mandated for scribe services. Patient aware of service. Verbal consent and written consent taken from the patient. Patient understands and verbalizes understanding of the scribes services and all questions answered regarding scribes services. Patient agrees to use of scribes services. 01/18/2024 Dietary counseling and surveillance (ICD-10 - Z71.3) Mrs Faria is a 58-year-old lady here today for follow up on medical weight management. We saw her in December. She lost 16 pounds in total and no weight change since last visit. Plan is as follows: Dietary recommendations. Food recall was done today and patient advised to be on low calorie, low carbohydrate diet. Restrict calories to less than 1500 kcal in 24 hours. Low glycemic index foods and encouraged. Meal replacements were recommended. Advised to use llqi-grc-pqqbirp multivitamins and vitamin D. Advised to use calorie counter and adhere to portion control. Monthly goal is to lose 4-6 pounds Pharmacotherapy. She is not on pharmacotherapy. D/W patient that she should try Qsymia or Contrave and check with insurance if it is covered. Side effects explained to the patient. Goal is to lose 3-5% of body weight in 3 months. Exercise. Patient encouraged to increase frequency, intensity and duration of exercise. Encouraged to burn at least 250-500 kcal in one session. Also encouraged to do weight training Assess. Different risk factors discussed with the patient and addressed Advise. Patient was given clear And specific advise that she will comply with Low-calorie diet and try not to exceed more than 1300 kcal in 24 hours. Agree. Mutually agreed to work together to achieve appropriate goals Assist. Motivational interviewing done. Arrange. Follow-up appointment arranged. Counseling. 15 minutes spent Face to face with the patient more than 50% of time was spent counseling Scribe services used to formulate this note under HIPAA compliance and under [place] law mandated for scribe services. Patient aware of service. Verbal consent and written consent taken from the patient. Patient understands and verbalizes understanding of the scribes services and all questions answered regarding scribes services. Patient agrees to use of scribes services. 08/01/2024 Impaired fasting blood sugar (ICD-10 - R73.01) Mrs Faria is a 59-year-old lady here today for follow up on medical weight management. We saw her in March. She lost 19 pounds in total and gained 1 lbs since last time. and she weighed 175.4 on her scale Plan is as follows: Dietary recommendations. Food recall was done today and patient advised to be on low calorie, low carbohydrate diet. Restrict calories to less than 1500 kcal in 24 hours. Low glycemic index foods and encouraged. Meal replacements were recommended. Advised to use brfa-jcv-giaggvq multivitamins and vitamin D. Advised to use calorie counter and adhere to portion control. Monthly goal is to lose 4-6 pounds Pharmacotherapy. Currently on Metformin 1000mg BID for diabetes. D/W patient that she can try phentermine low-dose and we also offered free sample of GLP-1 but she will think about it. Side effects explained to the patient. Goal is to lose 3-5% of body weight in 3 months. Exercise. Patient encouraged to increase frequency, intensity and duration of exercise. Encouraged to burn at least 250-500 kcal in one session. Also encouraged to do weight training Assess. Different risk factors discussed with the patient and addressed Advise. Patient was given clear And specific advise that she will comply with Low-calorie diet and try not to exceed more than 1300 kcal in 24 hours. Agree. Mutually agreed to work together to achieve appropriate goals Assist. Motivational interviewing done. Arrange. Follow-up appointment arranged. Counseling. 15 minutes spent Face to face with the patient more than 50% of time was spent counseling Type 2 diabetes - Previous A1c of 6.8. She is currently on metformin thousand milligrams twice daily. She defers a GLP-1 for now Advised on diet modification. Check A1c Hypertension - Blood pressure is well controlled. Continue the same regimen I have rendered the services for this patient under direct supervision of Dr. Fuentes, who did not see the patient but was available upon request 08/01/2024 Essential (primary) hypertension (ICD-10 - I10) Mrs Faria is a 59-year-old lady here today for follow up on medical weight management. We saw her in March. She lost 19 pounds in total and gained 1 lbs since last time. and she weighed 175.4 on her scale Plan is as follows: Dietary recommendations. Food recall was done today and patient advised to be on low calorie, low carbohydrate diet. Restrict calories to less than 1500 kcal in 24 hours. Low glycemic index foods and encouraged. Meal replacements were recommended. Advised to use wahs-emh-wqodwah multivitamins and vitamin D. Advised to use calorie counter and adhere to portion control. Monthly goal is to lose 4-6 pounds Pharmacotherapy. Currently on Metformin 1000mg BID for diabetes. D/W patient that she can try phentermine low-dose and we also offered free sample of GLP-1 but she will think about it. Side effects explained to the patient. Goal is to lose 3-5% of body weight in 3 months. Exercise. Patient encouraged to increase frequency, intensity and duration of exercise. Encouraged to burn at least 250-500 kcal in one session. Also encouraged to do weight training Assess. Different risk factors discussed with the patient and addressed Advise. Patient was given clear And specific advise that she will comply with Low-calorie diet and try not to exceed more than 1300 kcal in 24 hours. Agree. Mutually agreed to work together to achieve appropriate goals Assist. Motivational interviewing done. Arrange. Follow-up appointment arranged. Counseling. 15 minutes spent Face to face with the patient more than 50% of time was spent counseling Type 2 diabetes - Previous A1c of 6.8. She is currently on metformin thousand milligrams twice daily. She defers a GLP-1 for now Advised on diet modification. Check A1c Hypertension - Blood pressure is well controlled. Continue the same regimen I have rendered the services for this patient under direct supervision of Dr. Fuentes, who did not see the patient but was available upon request Plan Of Treatment Pending Test Test Name Order Date HEMOGLOBIN A1C 11/22/2022 HEMOGLOBIN A1C WITH EST GLUCOSE 05/13/20 Hemoglobin A1C 02/27/2018 Hemoglobin A1c 10/20/2023 Next Appt Details Provider Name:ELLA FUENTES , 10/31/2024 03:30:00 PM, [address] [place] [address], [phone], Insurance Providers Payer Name Payer Address Payer Phone Subscriber Number Group Number Insured Name Patient Relationship to Insured Coverage Start Date Coverage End Date [facility] [address] [place] [phone] [id number] Breana Faria Self - patient is the insured 2 Medical (General) History Medical History History ICD Code hypertension, benign s/p Breast Cancer on Tamoxifen New onset DM2 Carotid stenosis, sees Dr. Freedman Surgical History Surgery Date(Month/Year) lumpectomy mastectomy Hospitalization History Reason Date(Month/Year)
--- OUTSIDE RECORDS SUMMARY | 2024-10-23 08:45 | XMS_ITS | Clinical Summary ---
Author Organization [facility] Address [address] [place] [address] Care Team Providers Care Quality Compliance Manager Name Role Phone Howie Walton MD Primary Care Provider [phone] Allergies No known active allergies Medications Medication [...] age to complete this topic Care Teams Quality Compliance Manager Relationship Specialty Start Date End Date Howie Walton MD PCP - General Internal Medicine 12/10/16
[2024-10-23 18:39] LABS: Creatinine Urine 36.09 mg/dL; Protein/Creatinine Ratio, Ur 0.97 (<0.2); Total Protein Urine Random 35 mg/dL (<12)
[2024-10-25 23:09] LABS: IgA 339 mg/dL (47-310); IgG 1342 mg/dL (600-1640); IgM 198 mg/dL (50-300)
== END 2024-10-23 08:30 | disposition home or self-care (01) ==
LOC: HO.HKASLDS 08:29
PROVIDERS: Visit Provider Internal Medicine Nephrology
DX: R80.9 Proteinuria, unspecified (principal); I10 Essential (primary) hypertension
CPT/HCPCS: 82570; 82784; 84156; 86334; 86335

== ENCOUNTER 2024-10-25 15:44 | Outpatient (AMB) | payer OTHER, SELFPAY ==
--- NOTE | 2024-10-25 16:01 | HO.NEPHOV_ITS ---
Vital Signs 10/25/24 16:03 Height 5 ft 5 in Weight 184 lb BMI 30.6 BP 120/82 Blood Pressure Location Lt brachial Position Sitting Pulse 93 Pulse Source Pulse Oximeter Pulse Oximetry (%) 96 Oxygen Delivery Method Room Air Intake Visit Reasons: 3mon follow-up w/labs-LVM Program Evaluation Consultant Required: No Accompanied by: Self / Same As Patient Allergies No Known Allergies Allergy (Verified 10/25/24 16:03) HPI Comments Details: Breana was seen in follow-up of her proteinuria and hypertension. She has history of breast cancer which was treated. She has not taking any medications for the same. Her blood pressure has been close to goal. She does not have any other systemic symptoms. She has no edema, rise in serum creatinine, uncontrolled blood pressure or froth/foam in the urine. She denies any epistaxis, photosensitivity, skin rashes, urinary symptoms. She has no orthostasis. She does not take any excessive nonsteroidal anti-inflammatories. She claims to be compliant with her medications. She is currently on metformin 1000 mg bid. [facility] Medical History (Updated 10/12/23 @ 21:30 by Aroldo Mendez MD) Hypertension Surgical History History of removal of Port-a-Cath H/O mastectomy History of lumpectomy History of breast biopsy Family History Mother Heart disease Father Pancreatic cancer Sister Lymph node cancer Social History Alcohol intake: current Comment: Rare Patient Tobacco Use Status: Never used Tobacco Review of Systems Const All systems reviewed & are unremarkable except as noted in HPI and below Physical Exam Vital Signs: Last Vital Signs Pulse 93 10/25/24 16:03 BP 120/82 10/25/24 16:03 Pulse Ox 96 10/25/24 16:03 Oxygen Delivery Method Room Air 10/25/24 16:03 BMI result Body Mass Index 30.6 Const General: comfortable and no acute distress Orientation/consciousness: patient oriented x3 HEENT Head: Yes normocephalic Mouth: Normal oral and palatal mucosa present Eyes EOM: EOMs intact bilaterally Neck Neck: Yes supple Resp Auscultation: clear to auscultation bilaterally Cardio Jugular venous distension: no JVD Rate: regular rate GI Palpation (GI): Soft to palpation Auscultation: normal bowel sounds General: Yes no CVA tenderness Back/Spine/Pelvis Back: no CVA tenderness Skin General skin exam: no rashes or lesions noted Neuro General: patient oriented x3 and moves all extremities Extrem General: Yes no pedal edema Results Reviewed Nephrology Results: Urine Creatinine 36.09 mg/dL 10/23/24 Protein/Creatinin Ratio 0.97 (<0.2) H 10/23/24 Assessment & Plan Assessment & Plan (1) Hypertension: Code(s): I10 - Essential (primary) hypertension Category: Medical Qualifiers: Hypertension type: primary hypertension Qualified Code(s): I10 - Essential (primary) hypertension (2) Proteinuria: Code(s): R80.9 - Proteinuria, unspecified Category: Medical Qualifiers: Proteinuria type: other Qualified Code(s): R80.8 - Other proteinuria Plan Breana has longstanding proteinuria . She has history of breast cancer which was treated with tamoxifen as well as letrozole which she has finished now. Her blood pressure is well controlled. She has diabetes and is on metformin. Her renal functions have been stable. She denies any edema, froth or foam in the urine. In the past her serology and immunology were negative. Her anti CANDIE 2 R antibody was negative as well. I switched her amlodipine to diltiazem to utilize its anti proteinuric effect. I increased her Diltiazem to 240 mg daily. F/U labs ordered. She may need to start Jardiance as well as a renal biopsy. I asked her to stay away from nonsteroidal anti-inflammatories and maintain good hydration. Further management is pending evolving data Orders: Orders Blood Urea Nitrogen 6 Months I10 - Essential (primary) hypertension, R80.8 - Other proteinuria Protein Creatinine Ratio, Ur 6 Months I10 - Essential (primary) hypertension, R80.8 - Other proteinuria Creatinine 6 Months I10 - Essential (primary) hypertension, R80.8 - Other proteinuria Electrolytes 6 Months I10 - Essential (primary) hypertension, R80.8 - Other proteinuria Medications: Changed From diltiazem HCl CD 120 mg PO DAILY 30 caps 6RF To diltiazem HCl CD 120 mg PO BID 90 days 180 caps 6RF Coding Level of Care Code Est Pt Level 4 (83678) Diagnoses Primary hypertension I10 Hypertension type: primary hypertension Other proteinuria R80.8 Proteinuria type: other
[2024-10-25 16:03] VITALS: BP 120/82; PULSE 93; O2SAT 96; BMI 30.6
--- OUTSIDE RECORDS SUMMARY | 2024-10-25 16:04 | XMS_ITS | Data Portability ---
Author Organization [facility], [address] Address [address] [place] [address] Care Team Providers Care Senior Web Designer Name Role Phone ELLA FUENTES Primary Care Provider [phone] Assessment No assessment recorded. Plan of Treatment Reminders Order Date Submit Date Provider Last Modified By Organization Details Last Modified Time Details Appointments None recorded. Lab SARS CoV 2 RNA (COVID-19), QL, application specialist-PCR, respiratory specimen 2022 023 [facility], [address] [place] [address], [address], 3 14:07:12 Referral None recorded. Procedures None [...] [facility] ([facility]) [address] [facility], [place], [address], 01/26/2023 14:07:12 Result Notes None recorded. Problems Name Problem SNOMED Code Status Onset Date Resolution Date Notes Provider Name and Address Organization Details Recorded Time Malignant tumor of breast 105777846 Completed 202201/25/2023 CLAUS DRINKWINE null, [place] - [facility] 3 18:00:35 Diabetes mellitus 17619128 Active 2022 CLAUS DRINKWINE null, [place] - [facility] 3 18:00:43 Hypertensiv e disorder 65501332 Active 2022 CLAUS DRINKWINE null, [place] - [facility] 3 18:00:56 Hyperlipide madelyn 14452766 Active 2022 CLAUS DRINKWINE null, PA - [...] Name and Address Organization Details Recorded Time 318997 mold extract environme nt Not available Not available Not available 01/25/2023 86612 8 RxNorm CLAUS latif [facility] - [facility] [...] Updated DateTime 3 165.1 cm 29.6 kg/m2 73413.4 4 g 0 97.5 [degF] 16 /min [...] SNOMED-CT Code Diagnosis ICD10 Code Diagnosis Note [id number] [address] [facility] [address] [place] [address] 10/26/2021 14:57:24 10/26/2021 18:00:09 [id number] Zeina Chavez MD [address] [facility] [address] [place] [address] 01/25/2023 17:32:21 01/25/2023 18:42:37 Exposure to viral disease 1032046420 41278 Z20.828 Labs pendingYou should follow-up with [facility] [...] Hu Member ID Guarantor Name 01/25/2023 1 [facility] [id number] 1 Breana Faria [id number] Breana Faria 01/24/2023 1 FORMERLY [facility] [employer] - TOGETHER (MEDICAID HMO) [id number] Breana Faria [id number] Breana Faria Notes Date Note Type Note [...] Denies sob or fever. Zeina Chavez MD [address] [place] [address] [place], [address], [place] - [facility] 01/25/2023 18:46:41 OBGyn Episode No OBEpisode recorded.
--- OUTSIDE RECORDS SUMMARY | 2024-10-25 16:04 | XMS_ITS | Clinical Summary ---
Author Organization [facility] Address [address] [place] [address] Phone Care Team Providers Care Shovel Loader Operator Name Role Phone Howie Walton MD Primary Care Provider Allergies No known active allergies Medications amLODIPine (NORVASC) 5 mg tablet Take 1 tablet (5 mg total) by mouth daily. Active calcium carbonate-vitami n D3 600 mg-5 mcg (200 unit) per tablet Take?by mouth. Active ferrous sulfate 325 mg (65 mg elemental iron) tablet Take 1 tablet (325 mg total) by mouth daily. Active rosuvastatin (CRESTOR) 5 mg tablet Take 1 tablet (5 mg total) by mouth daily. Active sodium chloride (AYR) 0.65 % nasal drops spray or apply 1 spray inside Nose as needed for congestion. Active valsartan (DIOVAN) 320 mg tablet Take 1 tablet (320 mg total) by mouth daily. Active aspirin 81 mg EC tablet Take 81 mg by mouth daily. Active calcium carbonate/vitami n D3 (CALCIUM 600 + D,3, ORAL) Take by mouth. - Oral Active sodium chloride (SALINE NASAL NASL) by Nasal route. Active Vagifem 10 mcg tablet vaginal tablet Insert 1 tablet (10 mcg total) into the vagina 2 (two) times a week. 2024 Active metFORMIN (GLUCOPHAGE) 1,000 mg tablet Take 1 tablet (1,000 mg total) by mouth 2 (two) times a day with meals. Active Active Problems Problem Noted Date Diagnosed Date Essential hypertension 06/08/2019 Impaired fasting glucose 06/08/2019 Obesity with body mass index 30 or greater 06/08 Occlusion and stenosis of bilateral carotid raphael carrie 06/08/2019 Malignant neoplasm of right female breast ([facility] V24, [facility] V28) 12/24/2016 Immunizations Name Administration Dates Next Due Planday (ages 12 & older) KLEVER S-CoV-2 COVID-19, mRNA, LNP-S, kirby-sucrose, preservative free 10/11/2021 Pfizer SARS-CoV-2 COVID-19, mRNA, LNP-S, preservative free 07/11/2022,04/10/2021,09/21/2020,2020 Surgical History Surgery Date Site/Laterality Comments BREAST LUMPECTOMY PROCEDURE:BREAST LUMPECTOMY MASTECTOMY PROCEDURE:MASTECTOMY PORTACATH PLACEMENT PROCEDURE:PORTACATH PLACEMENT Medical History Medical History Date Comments Malignant neoplasm of right breast ([facility] V24, [facility] V28) DX:Malignant neoplasm of ri ght breast (HCC) Hypertension DX:Hypertension Social History Tobacco [...] Info) Description 11/21/2024 12:00 PM EDT Appointment [facility] Endoscopy [address] [place] [phone] Leila Mchugh MD [address] [facility] 200 [place] [address] 04/16/2025 3:45 PM EST Office Visit General Surgery - [place] [address] [phone] Acacia Manning MD 175 [facility] 110 [place] [address] 07/04/2025 2:45 PM EST Office Visit [facility] Hematology Oncology [address] [place] [phone] Kalani Massey DO [address] [place] [address] Health Maintenance Due Date Last Done Comments [...] 2024 11/12/2023, 07/11/2022, 10/11/2021, Additional history exists Diabetes: Annual Urine Albumin-Creatinine Ratio (uACR) 04/18/2024 Diabetes: Blood Sugar Control Test (HGBA1C) 04/18/2024 Influenza Vaccine (Season Ended) 2025 07/09/2023, 05/09/2022, 04/24/2021, Additional history exists Zoster Vaccines Completed 07/11/2022, 11/25/2021 HIB Vaccines [...] age to complete this topic Meningococcal B Vaccine Aged Out No l onger eligible based on patient's age to complete this topic RSV Immunization Patients Under 20 months Aged Out No longer eligible based on patient's age to complete this topic Varicella Vaccines Aged Out No longer eligible based on patient's age to complete this topic Insurance [facility] Care Teams Shovel Loader Operator Relationship Specialty Start Date End Date Howie Walton MD [address] [place] [phone] PCP - General 03/31/17
--- OUTSIDE RECORDS SUMMARY | 2024-10-25 16:04 | XMS_ITS | Clinical Summary ---
Author Organization [facility] Address [address] [place] [address] Care Team Providers Care Fisher Hand Line Name Role Phone Howie Walton MD Primary Care Provider [phone] Allergies No known active allergies Medications Medication [...] age to complete this topic Care Teams Fisher Hand Line Relationship Specialty Start Date End Date Howie Walton MD PCP - General Internal Medicine 12/10/16
--- OUTSIDE RECORDS SUMMARY | 2024-10-25 16:04 | XMS_ITS ---
Author Organization [facility] Address [address] [facility] [address] [place] [address] Care Team Providers Care Welder Gas Name Role Phone ALFREDO JARAMILLO Primary Care Provider Armida Peterson Unavailable [phone] REASON FOR VISIT WM f/up Medications Medication [...] for 10 days 11/13/2023 Not-Taking Saline Nasal [place] 0.65 % 2 sprays in ea ch nostril as needed Nasally every 2 hrs Unknown Farxiga 5 MG 1 tablet Orally Once a day for 30 days 11/11/2023 Not-Taking Encounters Encounter Location Date Provider Diagnosis [facility] [address] [facility] [address] [place] [address] 08/29/2024 Armida Peterson Plan Of Treatment Next Appt Details Provider Name:ELLA FUENTES , 10/31/2024 03:30:00 PM, [address] [facility] [address], [place], [address], Progress Notes * Sol FAR[birth year]OB:[birth year] (59 yo F)Acc No.[id number]:08/29/2024 Patient:?Breana FARIA Appointment Provider:?Armida Peterson :1965???Age:59 Y???Sex:Female D ate:08/29/2024 Address:[address] [place] [address], [facility] Pcp:ELLA FUENTES Subjective: * Chief [...] Once a day , Unknown Saline Nasal [place] 0.65 % Solution 2 sprays in each nostril as needed Nasally every 2 hrs Objective: * Vitals:? Assessment: Plan: * Treatment: * Images: * Electronic signature of Claudia Peterson PA-C on 10/25/2024 at 04:04 PM EDT Sign off status: Pending * Appointment Provider:?Armida Sharma te:?08/29/2024 Generated for Juan Miguel bush/Jia/Barry on:?10/25/2024 04:04 PM EDT
--- OUTSIDE RECORDS SUMMARY | 2024-10-25 16:04 | XMS_ITS | Encounter Summary ---
Author Organization [facility] Address [address] [facility] [address] [place] [address] Phone Care Team Providers Care Flooring Helper Name Role Phone Howie Walton MD Primary Care Provider [phone] Reason for Visit * Reason Comments Med Refill Encounter Details Date Type Department Care Team ([facility] st Contact Info) Description 11/03/2023 Refill [facility] [address] [facility] [address] [place] [phone] Curtis Suarez MD [address] [facility] [address] [place] [phone] Social History Tobacco Use Types Packs/Day Years [...] on filedocumented in this encounter Care Teams Flooring Helper Relationship Specialty Start Date End Date Howie Walton MD [address] [place] [phone] PCP - General 06/23/20 documented as of this encounter
--- OUTSIDE RECORDS SUMMARY | 2024-10-25 16:04 | XMS_ITS | Patient Health Record ---
Author Organization [facility] Address [address] [facility] [address] [place] [address] Care Team Providers Care Tapper Balance Wheel Screw Hole Name Role Phone ELLA FUENTES Primary Care Provider LukemarleniArmida virgen Unavailable [phone] Allergies No Known Allergies Results Component Value Reference Range Notes Hemoglobin [id number] Reviewed date:09/06/2024 04:21:53 PM Interpretation: Performing Lab:[facility], [address] [place] [address], [place], Phone - [phone], Director - Mehdi Notes/Report: Hemoglobin A1c 8.0 [...] MG as directed Orally Active Saline Nasal [place] 0.65 % 2 sprays in ea ch [...] Problem Type II diabetes mellitus without complication (771894535) Type 2 diabetes mellitus without complications (E11.9) Active confirmed Problem Obesity due to excess calories (265877048) Other obesity due to excess calories (E66.09) Active confirmed Problem Mixed hyperlipidemia (305091037) Mixed hyperlipidemia (E78.2) Active confirmed Problem Occlusion and 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 (921281936) Occlusion and stenosis of bilateral carotid arteries (I65.23) Active confirmed Problem Personal history of primary malignant neoplasm of breast (613894242) Personal history of malignant neoplasm of breast (Z85.3) Active confirmed Problem Essential hypertension (42107625) Essential (primary) hypertension (I10) Active confirmed Vital Signs Heart Rate 90 /min 08/01/2024 Temperature 98.2 degrees Fahrenheit 08/01/2024 Blood pressure diastolic 82 mm Hg 08/01/2024 Oximetry 100 % 08/01/2024 Height 65.51 in 08/01/2024 Blood pressure systolic 120 mm Hg 08/01/2024 Weight 181.1 lbs 08/01/2024 BMI 29.67 kg/m2 08/01/2024 Encounters Encounter Location Date Provider Diagnosis [facility] [address] [facility] [address] [place] [address] 10/27/2023 [facility] [address] [facility] [address] [place] [address] 11/08/2023 [facility] [address] [facility] [address] [place] [address] 11/11/2023 [facility] [address] [facility] [address] [place] [address] 11/13/2023 [facility] [address] [facility] [address] [place] [address] 03/27/2024 [facility] [address] [facility] [address] [place] [address] 07/16/2024 [facility] [address] [facility] [address] [place] [address] 09/05/2024 [facility] [address] [facility] [address] [place] [address] 11/22/2023 JARAMILLO GUL Other obesity due to excess calories E66.09 and Dietary counseling and surveillance Z71.3 [facility] [address] [facility] [address] [facility] [place] [address] 12/20/2023 JARAMILLO GUL Other obesity due to excess calories E66.09 and Dietary counseling and surveillance Z71.3 [facility] [address] [facility] [address] [place] [address] 01/18/2024 JARAMILLO GUL Other obesity due to excess calories E66.09 and Dietary counseling and surveillance Z71.3 [facility] [address] [facility] [address] [facility] [place] [address] 02/22/2024 JARAMILLO GUL Other obesity due to excess calories E66.09 and Dietary counseling and surveillance Z71.[address] [place] [address] 03/21/2024 JARAMILLO ALFREDO [address] [place] [address] 04/02/2024 JARAMILLO GUL Other obesity due to excess calories E66.09 and Dietary counseling and surveillance Z71.[address] [place] [address] 05/02/2024 JARAMILLO GUL Other obesity due to excess calories E66.09 and Dietary counseling and surveillance Z71.[address] [place] [address] 05/30/2024 JARAMILLO GUL Other obesity due to excess calories E66.09 and Dietary counseling and surveillance Z71.[address] [place] [address] 06/27/2024 JARAMILLO ALFREDO [address] [address] 08/01/2024 Armida Peterson Other obesity due to excess calories E66.09 ; Dietary counseling and surveillance Z71.3 ; Impaired fasting blood sugar R73.01 and Essential (primary) hypertension I10 [address] [address] 10/02/2024 W[address] [address] 07/25/2024 Mellissatatianatacho Butlerhansa Assessments Encounter Date Diagnosis (ICD [...] Meal replacements were recommended. Advised to use czwa-fon-nizbooq multivitamins and vitamin D. Advised to use [...] this note under HIPAA compliance and under [place] law mandated for scribe services. Patient aware [...] Meal replacements were recommended. Advised to use aimp-dwh-hkwondx multivitamins and vitamin D. Advised to use [...] this note under HIPAA compliance and under [place] law mandated for scribe services. Patient aware [...] Meal replacements were recommended. Advised to use osyw-uub-ltbnvix multivitamins and vitamin D. Advised to use [...] this note under HIPAA compliance and under [place] law mandated for scribe services. Patient aware [...] Meal replacements were recommended. Advised to use kday-udy-bmkppis multivitamins and vitamin D. Advised to use [...] this note under HIPAA compliance and under [place] law mandated for scribe services. Patient aware [...] Meal replacements were recommended. Advised to use aeap-wyv-svppsdh multivitamins and vitamin D. Advised to use [...] this note under HIPAA compliance and under [place] law mandated for scribe services. Patient aware [...] Meal replacements were recommended. Advised to use acab-raq-myqujto multivitamins and vitamin D. Advised to use [...] this note under HIPAA compliance and under [place] law mandated for scribe services. Patient aware [...] Meal replacements were recommended. Advised to use oyxy-yjo-wvsrwfg multivitamins and vitamin D. Advised to use [...] this note under HIPAA compliance and under [place] law mandated for scribe services. Patient aware [...] Meal replacements were recommended. Advised to use bevt-xvp-neihnei multivitamins and vitamin D. Advised to use [...] this note under HIPAA compliance and under [place] law mandated for scribe services. Patient aware [...] Meal replacements were recommended. Advised to use ohpp-zhw-eeyaphr multivitamins and vitamin D. Advised to use [...] Meal replacements were recommended. Advised to use mwst-yqy-vkrmcsa multivitamins and vitamin D. Advised to use [...] the patient but was available upon request 05/02/2024 Other obesity due to excess calories [...] Meal replacements were recommended. Advised to use jium-enm-claehwu multivitamins and vitamin D. Advised to use [...] this note under HIPAA compliance and under [place] law mandated for scribe services. Patient aware [...] Meal replacements were recommended. Advised to use dfdp-ums-xntmlbt multivitamins and vitamin D. Advised to use [...] this note under HIPAA compliance and under [place] law mandated for scribe services. Patient aware of service. Verbal consent and written consent taken from the patient. Patient understands and verbalizes understanding of the scribes services and all questions answered regarding scribes services. Patient agrees to use of scribes services. 01/18/2024 Other obesity due to excess calories [...] Meal replacements were recommended. Advised to use dyhu-zwv-lypcmrc multivitamins and vitamin D. Advised to use [...] this note under HIPAA compliance and under [place] law mandated for scribe services. Patient aware [...] Meal replacements were recommended. Advised to use svra-khp-fljatdb multivitamins and vitamin D. Advised to use [...] this note under HIPAA compliance and under [place] law mandated for scribe services. Patient aware [...] Meal replacements were recommended. Advised to use uvuu-tvw-gdcvrff multivitamins and vitamin D. Advised to use [...] this note under HIPAA compliance and under [place] law mandated for scribe services. Patient aware [...] Meal replacements were recommended. Advised to use xdeq-ica-axorgzt multivitamins and vitamin D. Advised to use [...] this note under HIPAA compliance and under [place] law mandated for scribe services. Patient aware [...] Meal replacements were recommended. Advised to use qlxw-ysu-hlfjvrn multivitamins and vitamin D. Advised to use [...] Meal replacements were recommended. Advised to use tljk-vuf-nymwbxx multivitamins and vitamin D. Advised to use [...] Provider Name:ELLA FUENTES , 10/31/2024 03:30:00 PM, [address] [place] [address], [phone], Insurance Providers Payer Name Payer Address Payer Phone Subscriber Number Group Number Insured Name Patient Relationship to Insured Coverage Start Date Coverage End Date [facility] [address] [place] [address] [id number] Breana Faria Self - patient is the insured 2 Medical (General) History Medical History History ICD Code hypertension, benign s/p Breast Cancer on Tamoxifen New onset DM2 Carotid stenosis, sees Dr. Freedman Surgical History Surgery Date(Month/Year) lumpectomy mastectomy Hospitalization History Reason Date(Month/Year)
--- OUTSIDE RECORDS SUMMARY | 2024-10-25 16:04 | XMS_ITS | Encounter Summary ---
Author Organization [facility] Address [address] [facility] [address] [place] [address] Phone Care Team Providers Care Operating Systems Programmer Name Role Phone Howie Walton MD Primary Care Provider [phone] Reason for Visit * Reason Comments Med Refill Encounter Details Date Type Department Care Team ([facility] st Contact Info) Description 10/21/2023 Refill [facility] [address] [facility] [facility] [address] [place] [phone] Curtis Suarez MD [address] [facility] [address] [place] [address] Social History Tobacco Use Types Packs/Day Years [...] on filedocumented in this encounter Care Teams Operating Systems Programmer Relationship Specialty Start Date End Date Howie Walton MD [address] [place] [address] PCP - General 06/23/20 documented as of this encounter
--- OUTSIDE RECORDS SUMMARY | 2024-10-25 16:04 | XMS_ITS | Clinical Summary ---
Author Organization [facility] Address [address] [place] [address] Phone Care Team Providers Care Solar Photovoltaic Designer Name Role Phone Howie Walton MD Primary Care Provider [phone] Allergies No known active allergies Medications aspirin [...] 05/09/2022, 04/24/2021, 02/28/2019, Additional history exists [place] [address] [facility] Care Teams Solar Photovoltaic Designer Relationship Specialty Start Date End Date Howie Walton MD [address] [place] [address] PCP - General 06/23/20
== END 2024-10-25 16:28 | disposition home or self-care (01) ==
LOC: HO.HKAS 15:45
PROVIDERS: PCP Hospitalist; Visit Provider Internal Medicine Nephrology
DX: I10 Essential (primary) hypertension (principal); R80.8 Other proteinuria
CPT/HCPCS: 99214